=== PATIENT | male | born 2005 | race Caucasian/White ===

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

== ENCOUNTER → 2023-03-23 10:15 | Outpatient (CLI) | payer BC, SELFPAY ==
--- NOTE | ~2023-03-23 | US_ITS ---
Testicular ultrasound with doppler. Indication: Disorder of male genital organ. Technique: Real-time sonography the scrotum was performed. Color flow Doppler and Doppler spectral an alysis were performed. Findings: The testes are homogeneous in echotexture bilaterally. There is no evidence of an intrates ticular mass. The right testis measures 4.3 x 2.3 x 3.1 cm and the left 4.6 x 2.4 x 2.6 cm. There is color-flow seen to both testes. Vascular flow is seen in both testes. There is no sonographic evidenc e of torsion. The head of the epididymis is visualized bilaterally and is within normal limits. Smal l left hydrocele noted. Impression: No testicular mass or torsion. Small left hydrocele. Reviewed, dictated and finalized at [facility]. [employer] Impression: No testicular mass or torsion. Small left hydrocele.
== END ==
PROVIDERS: PCP Nurse Practitioner Family; Visit Provider Nurse Practitioner Family
DX: N50.89 Other specified disorders of the male genital organs (principal); N43.3 Hydrocele, unspecified
CPT/HCPCS: 76870; 93976

== ENCOUNTER 2024-03-20 19:22 | Emergency (ER) | payer BC, SELFPAY ==
[2024-03-20 19:20] VITALS: BP 148/90; PULSE 122; RESP 22; TEMP 36.7; O2SAT 98
[2024-03-20] MEDS: OLANZapine 10 MG INJ VIAL 5 MG IM (19:37)
[2024-03-20] MEDS: WATER, STERILE FOR INJECTION 10 ML VIAL XX (19:43)
[2024-03-20 20:06] LABS: Basophils Percent Auto 0.3 % (0.2-1.2); Eosinophils Absolute Auto 0.1 K/mm3 (0-0.3); Eosinophils Percent Auto 1.8 % (0-4.4); Hematocrit 43.9 % (42.0-52.0); Hemoglobin 15.4 g/dL (14.0-18.0); Immature Granulocyte Absolute 0.02 K/mm3 (0.00-0.031); Immature Granulocyte Percent A 0.3 % (0-0.5); Lymphocytes Absolute Auto 1.28 K/mm3 (0.9-3.2); Lymphocytes Percent Auto 17.8 % (18.3-44.2); Mean Corpuscular HGB Conc 35.1 g/dl (32-36); Mean Corpuscular Hemoglobin 31.2 pg (26-34); Mean Platelet Volume 10.4 fl (7.4-10.4); Monocytes Absolute Auto 0.7 K/mm3 (0.1-0.6); Monocytes Percent Auto 10.3 % (2.6-8.5); Neutrophils Percent Auto 69.5 % (45.5-73.1); Platelet Count Result 190 k/mm3 (150-375); Red Blood Count 4.93 M/mm3 (4.6-6.20); Red Cell Distribution Width 12.5 % (11.5-14.5); White Blood Count 7.2 K/mm3 (4.5-10.0)
[2024-03-20 20:17] LABS: Acetaminophen < 10 ug/mL (10-30); Ethanol < 10 mg/dL (<10); Salicylate < 1.0 mg/dL (2-20)
[2024-03-20 20:20] LABS: Alanine Aminotransferase 23 U/L (6-50); Alkaline Phosphatase 62 U/L (38-126); Anion Gap 11 mmol/L (4-12); Aspartate Amino Transferase 27 U/L (17-59); Bilirubin,Total 1.3 mg/dL (0.2-1.3); Blood Urea Nitrogen 12 mg/dL (9-20); Calcium 9.9 mg/dL (8.4-10.2); Carbon Dioxide 24 mmol/L (22-30); Chloride 104 mmol/L (98-107); Estimated CRCL calculation 114 ml/min; Estimated Glomerular Filt Rate > 60; Glucose 102 mg/dL (65-110); Potassium 3.7 mmol/L (3.4-5.0); Sodium 139 mmol/L (137-145)
--- NOTE | 2024-03-20 20:22 | ED_ITS ---
HPI - Psych General Chief Complaint: Psychiatric Symptoms Stated Complaint: behavioral health issue/fighting with EMS Time Seen by Provider: 03/20/24 19:22 Source: family and EMS Mode of arrival: EMS Limitations: clinical condition History of Present Illness HPI Narrative: 19-year-old with history of anxiety but he is bike trail with bizarre behavior. Patient was very anxious and upon their arrival. As per the mom that bedside states that he has been acting weird for the past day or so. 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 She also states that he starts walking bike trail and he was too agitated. Mom states that he has been taking 200 mg of sertraline recently. He has never been admitted to psychiatric hospital. No significant stress at home however he does not get along well with his dad who he saw few days ago. She also mentions that he is confused about his sexual orientation. complaint: altered mental status Onset (ago): day(s) (1) Relieving factors: none Exacerbating factors: none Associated symptoms: denies other symptoms Related Data Allergies Allergy/AdvReac Type Severity Reaction Status Date / Time No Known Allergies Allergy Verified 03/20/24 19:44 Review of Systems Review of Systems: ROS unobtainable: Yes unobtainable due to mental status PMFSH Past Medical History Medical History No pertinent past medical history Surgical History Surgical History No pertinent past surgical history Social History Social History Smoking status: Never smoker Alcohol intake: never Substance use type: marijuana Exam Narrative: GENERAL: Well-appearing, well-nourished, and in no acute distress. HEAD: Normocephalic, atraumatic. EYES: PERRLA and EOMI. ENT: Nares clear, no rhinorrhea or epistaxis. Mucous membranes moist. NECK: Supple. CHEST: Clear to auscultation. No respiratory distress. HEART: Regular rate and rhythm. No murmur heard. Normal peripheral pulses. ABDOMEN: Soft, nontender, nondistended, normal active bowel sounds. EXTREMITIES: Normal range of motion. No edema. SKIN: Warm, dry, no rash. NEURO: No focal deficits. Alert and oriented x3. PSYCH: Nanxious Course Course Emergency Course: His mother and stepmother were read bedside , I did inform him about the lab work, will consult behavioral health for possible placement patient was given IM Zyprexa and he is resting pt has been accepted to [facility] under Dr. Landaverde Reevaluation(s) Date: 03/21/24 Time: 00:25 Reevaluation #2: Patient became quite aggressive and started to fight with the security and wanted to run out of the ER. He was brought back to the room and he was restrained. He was also given Zyprexa 10 mg IM Vital Signs Vital signs: Vital Signs Temperature 36.7 C 03/20/24 19:20 Pulse Rate 122 H 03/20/24 19:20 Respiratory Rate 22 H 03/20/24 19:20 Blood Pressure 148/90 H 03/20/24 19:20 Pulse Oximetry 98 03/20/24 19:20 Temperature 36.9 C 03/21/24 00:25 Pulse Rate 90 03/21/24 03:37 Respiratory Rate 16 03/21/24 03:37 Blood Pressure 110/70 03/21/24 03:37 Pulse Oximetry 97 03/21/24 03:37 MDM - Psych Lab Data 03/20/24 19:59 03/20/24 19:59 Labs: Lab Results 03/20/24 03/20/24 Range/Units 19:59 20:50 WBC 7.2 (4.5-10.0) K/mm3 RBC 4.93 (4.6-6.20) M/mm3 Hgb 15.4 (14.0-18.0) g/dL Hct 43.9 (42.0-52.0) % MCV 89.0 (80-100) fl MCH 31.2 (26-34) pg MCHC 35.1 (32-36) g/dl RDW 12.5 (11.5-14.5) % Plt Count 190 (150-375) k/mm3 MPV 10.4 (7.4-10.4) fl Immature Gran % (Auto) 0.3 (0-0.5) % Neut % (Auto) 69.5 (45.5-73.1) % Lymph % (Auto) 17.8 L (18.3-44.2) % Rooks % (Auto) 10.3 H (2.6-8.5) % Eos % (Auto) 1.8 (0-4.4) % Baso % (Auto) 0.3 (0.2-1.2) % Lymph # (Auto) 1.28 (0.9-3.2) K/mm3 Rooks # (Auto) 0.7 H (0.1-0.6) K/mm3 Eos # (Auto) 0.1 (0-0.3) K/mm3 Baso # (Auto) 0.0 (0.0-0.1) K/mm3 Abs Immat Gran (auto) 0.02 (0.00-0.031) K/mm3 Absolute Neuts (auto) 5.0 (1.3-6.7) K/mm3 Absolute Nucleated RBC 0.000 (0.0-0.012) K/mm3 Nucleated RBC % 0.0 (0.0-0.2) % Sodium 139 (137-145) mmol/L Potassium 3.7 (3.4-5.0) mmol/L Chloride 104 (98-107) mmol/L Carbon Dioxide 24 (22-30) mmol/L Anion Gap 11 (4-12) mmol/L BUN 12 (9-20) mg/dL Creatinine 0.90 (0.7-1.3) mg/dL Estim Creat Clear Calc 114 ml/min Estimated GFR > 60 (59 - ) Glucose 102 (65-110) mg/dL Calcium 9.9 (8.4-10.2) mg/dL Total Bilirubin 1.3 (0.2-1.3) mg/dL AST 27 (17-59) U/L ALT 23 (6-50) U/L Alkaline Phosphatase 62 (38-126) U/L Total Protein 9.0 H (6.3-8.2) g/dL Albumin 5.0 (3.5-5.1) g/dL Urine Color Yellow (Yellow) Urine Appearance Clear (Clear) Urine pH 6.0 (5.0-9.0) Ur Specific [place] 1.028 (1.001-1.035) Urine Protein 1+ H (Negative) mg/dL Urine Glucose (UA) Negative (Negative) mg/dL Urine Ketones Trace H (Negative) mg/dL Ur Blood (Man) Negative (Negative) Urine Nitrate Negative (Negative) Urine Bilirubin Negative (Negative) Urine Urobilinogen 1.0 (<2.0) mg/dL Add Ur Microanalysis Reviewed Leukocyte Esterase Rfl Negative (Negative) MARIA LUZ/UL Urine RBC 0-2 (0-2) /hpf Urine WBC 0-5 (0-3) /hpf Ur Squamous Epith Cells None seen (Few) /hpf Urine Bacteria None seen /hpf Urine Casts 0-2 Salicylates < 1.0 L (2-20) mg/dL Urine Opiates Screen Negative (Negative) Urine Methadone Screen Negative (Negative) Acetaminophen < 10 L (10-30) ug/mL Ur Barbiturates Screen Negative (Negative) Ur Phencyclidine Scrn Negative (Negative) Ur Amphetamine Screen Negative (Negative) U Benzodiazepines Scrn Negative (Negative) Urine Cocaine Screen Negative (Negative) U Cannabinoids Screen Positive A (Negative) Ethyl Alcohol < 10 (<10) mg/dL Influenza A (RT-PCR) Negative (Negative) Influenza B (RT-PCR) Negative (Negative) RSV (RT-PCR) Negative (Negative) SARS-CoV-2 RNA (RT-PCR) Negative (Negative) Discharge Plan Discharge Clinical Impression: Psychotic disorder Patient Disposition: Psychiatric Hosp Condition: Stable Follow-up/Referrals: Sonia Lea MD [Primary Care Provider] - Time of Disposition: 03:47
[2024-03-20 20:41] LABS: Influenza A QL RT-PCR Negative (Negative); Influenza B QL RT-PCR Negative (Negative); RSV RNA, RT-PCR Negative (Negative); SARS-CoV-2 RNA PCR Negative (Negative)
[2024-03-20 21:18] LABS: Add Urine Microscopic? YES; Amphetamine Screen Urine Negative (Negative); Appearance Urine Clear (Clear); Bacteria Urine None Seen /hpf; Barbiturate Screen Urine Negative (Negative); Benzodiazepines Screen Urine Negative (Negative); Bilirubin Urine Negative (Negative); Blood Urine Negative (Negative); Cannabinoid Screen Urine Positive (Negative); Cocaine Screen Urine Negative (Negative); Color Urine Yellow (Yellow); Glucose Urine UA Negative (Negative); Ketones Urine Trace mg/dL (Negative); Leukocyte Esterase Ur Negative LEU/UL (Negative); Methadone Screen Urine Negative (Negative); Need Manual Microscopic Reviewed; Nitrate Urine Negative (Negative); Non Pathogenic Casts 0-2; Opiate Screen Urine Negative (Negative); Phencyclidine Screen Urine Negative (Negative); Protein Urine 1+ mg/dL (Negative); RBC Urine 0-2 /hpf (0-2); Specific Grav Ur 1.028 (1.001-1.035); Squamous Epithelial Cell Urine None Seen /hpf (Few); WBC Urine 0-5 /hpf (0-3)
--- NOTE | 2024-03-20 21:51 | PC.NURSE ---
called Crisis at 2134 and spoke to Coco who gets pt info, but recommends calling [facility] first. [facility] denies pt evaluation due to state insurance and states to call Crisis back. Called Crisis again @[phone] to update them and they state they will call ED back soon with ETA for evaluation.
[2024-03-20 22:14] VITALS: PULSE 74; RESP 13; O2SAT 95
--- NOTE | 2024-03-20 22:21 | PC.NURSE ---
pt family states pt takes sertraline at 2200 each night. pt states they do not want to take it at this time.
--- NOTE | 2024-03-20 23:13 | PC.NURSE ---
care and report given to BLANCA Negrete. all questions answered.
[2024-03-21] MEDS: OLANZapine 10 MG INJ VIAL (00:22)
[2024-03-21] MEDS: WATER, STERILE FOR INJECTION 10 ML VIAL XX (00:22)
[2024-03-21 00:25] VITALS: BP 157/87; PULSE 115; RESP 17; TEMP 36.9; O2SAT 99
[2024-03-21 00:56] VITALS: BP 107/67; PULSE 93; RESP 20; O2SAT 97
--- NOTE | 2024-03-21 03:32 | PC.NURSE ---
Report given to BLANCA River at [facility]. Pt to go to [id number] Landaverde. Requested to call their CN phone at [phone] when have an ETA.
[2024-03-21 03:37] VITALS: BP 110/70; PULSE 90; RESP 16; O2SAT 97
== END 2024-03-21 04:35 ==
PROVIDERS: Emergency Provider Family Medicine; PCP Family Medicine
DX: F28 Other psychotic disorder not due to a substance or known physiological condition (principal); Z11.52 Encounter for screening for COVID-19
CPT/HCPCS: 36415; 80053; 80143; 80179; 80307; 81001; 82077; 85025; 87637; 96374; 96376; 99285; J2359

== ENCOUNTER 2024-06-04 18:41 | Emergency (ER) | payer BC, SELFPAY ==
--- NOTE | 2024-06-04 18:52 | ED.GENADULT ---
HPI - General Adult General Chief complaint: Extremity Injury, Upper Stated complaint: INJURED L THUMB Time Seen by Provider: 06/04/24 18:52 Source: patient Mode of arrival: ambulatory Limitations: no limitations History of Present Illness HPI narrative: 19 y/o male presented for c/o left thumb pain and bleeding under the nail. Endorses injury to the nail 2 days ago when he closed it in the car door. States he was seen at another UC today, no fracture per xray, but they were unable to drain the hematoma. Endorses throbbing, and the bleeding under the nail has worsened over the past 2 days. Related Data Home Medications ?Medication ?Instructions ?Recorded ?Confirmed ?Last Taken ?Type aripiprazole 10 mg tablet mg 06/04/24 Unknown History sertraline 100 mg tablet mg 06/04/24 Unknown History Allergies Allergy/AdvReac Type Severity Reaction Status Date / Time No Known Allergies Allergy Verified 06/04/24 18:50 Review of Systems Review of Systems: per HPI All systems reviewed & are unremarkable except as noted in HPI and below PMFSH Past Medical History Medical History No pertinent past medical history Surgical History Surgical History No pertinent past surgical history Social History Social History Smoking status: Never smoker Alcohol intake: never Substance use type: marijuana Comments At time of signature, I have reviewed and agree with nursing past medical, surgical, social and family history unless otherwise noted. Please see nursing chart for further information. There is no relevant family history pertinent to the presenting complaint Exam Narrative: GENERAL: Well-appearing CHEST: Speaks in full sentences. No respiratory distress. HEART: Regular rate and rhythm. Normal and equal peripheral pulses. EXTREMITIES: Left thumb subungual hematoma covering 100%. Tender with palpation. Digit CMS intact. No obvious deformity; alignment normal, pulse palpable and equal bilaterally, skin warm, dry, pink. Capillary refill less than 3 seconds. SKIN: Warm, dry NEURO: Alert and oriented x3. PSYCH: Normal mood and affect Course Course Emergency Course: Patient is aware of diagnosis, understands and agrees to treatment plan. Anticipatory guidance given. Patient agrees to follow-up as directed and is aware of reasons to seek care at the emergency department. Portions of this record may have been created with voice recognition software Level of Care: Express Care Visit Vital Signs Vital signs: Vital Signs Temperature 99.2 F 06/04/24 18:54 Pulse Rate 101 H 06/04/24 18:54 Respiratory Rate 16 06/04/24 18:54 Blood Pressure 141/77 H 06/04/24 18:54 Pulse Oximetry 98 06/04/24 18:54 Temperature 99.2 F 06/04/24 18:54 Pulse Rate 101 H 06/04/24 18:54 Respiratory Rate 16 06/04/24 18:54 Blood Pressure 141/77 H 06/04/24 18:54 Pulse Oximetry 98 06/04/24 18:54 Reviewed Procedures Nail Trephination Nail Trephination #1: Nail Trephination Date: 06/04/24 Location (finger): left and thumb Sterile prep: other (alcohol) Method of drainage: nail cautery Procedure successful: Yes Patient tolerated procedure: well and no complications Nail Trephination Comment: Large amount of blood expelled with manual pressure. RICCARDO and bandaid applied. Medical Decision Making MDM Narrative Medical decision making narrative: Discussed physical exam findings c/w subungual hematoma left thumb; tolerated trephination. Discussed physical exam findings. Advised supportive measures and signs/symptoms to go to the ER. Pt is appropriate for outpt treatment and f/u. Differential Diagnosis Differential Diagnosis: subungual hematoma, contusion, abrasion, avulsion, fracture, dislocation, sprain Vital Signs Vital Signs: Vital Signs Temperature 99.2 F 06/04/24 18:54 Pulse Rate 101 H 06/04/24 18:54 Respiratory Rate 16 06/04/24 18:54 Blood Pressure 141/77 H 06/04/24 18:54 Pulse Oximetry 98 06/04/24 18:54 Temperature 99.2 F 06/04/24 18:54 Pulse Rate 101 H 06/04/24 18:54 Respiratory Rate 16 06/04/24 18:54 Blood Pressure 141/77 H 06/04/24 18:54 Pulse Oximetry 98 06/04/24 18:54 Discharge Plan Discharge Clinical Impression: Subungual hematoma of finger Qualifiers: Encounter type: initial encounter Qualified Code(s): S60.10XA - Contusion of unspecified finger with damage to nail, initial encounter Patient Disposition: Home, Self-Care Condition: Stable Instructions: Antibiotic Form, Subungual Hematoma (ED) Additional Instructions: Rest. Elevate the hand Avoid pushing, pulling, lifting or anything that worsens the symptoms Tylenol 1000mg every 8 hours as needed Apply ice to the site for 10 minute intervals several times a day Change the dressing daily Follow up with your primary care provider and the hand specialist Go to the ER for worsening symptoms or concerns Patient Language: Rwandan Prescriptions: New cephalexin 500 mg capsule 500 mg PO Q12H 5 Days Qty: 10 0RF No Action sertraline 100 mg tablet aripiprazole 10 mg tablet Follow-up/Referrals: UNKNOWN,DOCTOR [Primary Care Provider] - Stand Alone Forms: Work/School Release IP Time of Disposition: 19:15
[2024-06-04 18:54] VITALS: BP 141/77; PULSE 101; RESP 16; TEMP 37.3; O2SAT 98
== END 2024-06-04 19:18 | disposition home or self-care (01) ==
PROVIDERS: Emergency Provider Nurse Practitioner Family
DX: S60.112A Contusion of left thumb with damage to nail, initial encounter (principal); V49.3XXA Car occupant (driver) (passenger) injured in unspecified nontraffic accident, initial encounter; F12.90 Cannabis use, unspecified, uncomplicated
CPT/HCPCS: 11740; 99213; G0463

== ENCOUNTER 2024-12-28 16:51 | Emergency (ER) | payer BC, SELFPAY ==
[2024-12-28] VITALS (22 sets, daily range): BP systolic 117–152; BP diastolic 55–106; PULSE 86–126; RESP 15–28; TEMP 36.4–36.8; O2SAT 91–100
--- OUTSIDE RECORDS SUMMARY | 2024-12-28 16:53 | XMS_ITS ---
Author Organization [facility] Aviate Address [address] [place] [address] Care Team Providers Care Senior Data Quality Analyst Name Role Phone Aliyah Mora Unavailable [phone] Simon Wong Unavailable [phone] Allergies Allergen (clinical drug ingredient) Drug/Non Drug Allergy documented on EMR Reaction Allergy Type Onset Date Status Cat dander cats (uncoded) Unknown Allergy Acti ve Dog dander dogs (uncoded) Unknown Allergy Acti ve grass (uncoded) Unknown Allergy Acti ve peanuts (uncoded) Unknown Allergy Ac tive Tree Nuts Unknown Allergy Active REASON FOR VISIT I got sent home from work because i was using my brain., poor sleep for the past 4-5 nights., experiencing overstimulation from sounds, smells, and visual stimuli every day, which triggers stress and impacts his daily functioning. Medications Medication SIG (Take, Route, Frequency, Duration) Notes Start Date End Date Status PROzac 20 MG 1 capsule Orally Onc e a day; Duration: 30 days Active ZyrTEC Allergy 10 MG 1 tablet as needed Orally Once a day As needed Active Fish Oil Active FLUoxetine HCl 20 MG 1 tablet Orally Onc e a day; Duration: 30 days decreased on 12/27/2024 Active ARIPiprazole 10 MG 1 tablet Orally Once a day; Duration: 30 days goal to give long acting injection 12/27/2024 Active Abilify Maintena 400 MG as directed Intramuscular monthly; Duration: 1 days Active Social History Tobacco Use: Social History Observation Description Date Details (start date - stop date) Never Smoker NA - NA Sex Assigned At : Social History Observation Description Sex Assigned At Male Household Question Answer Notes Number of adults in household: Nancy blakely w/ cali Tobacco Control (Standard) Question Answer Notes Tobacco use: Nonsmoker Vital Signs Blood pressure systolic 152 mm Hg 12/28/19 25 Blood pressure diastolic 110 mm Hg 025 Heart Rate 102 /min 12/27/2024 Weight 200 lbs 12/27/2024 Weight-kg 90.72 kg 12/27/2024 Encounters Encounter Location Date Provider Diagnosis [facility], [facility] [address] [facility] [address] [place] [address] 12/27/2024 Simon Clubb SHIRA (generalized anxiety disorder) F41.1 ; Bipolar 1 disorder F31.9 and Non-compliance Z91.199 Assessments Encounter Date Diagnosis (ICD Code) Assessment Notes Treatment Notes Treatment Clinical Notes Section Notes 12/27/2024 SHIRA (generalized anxiety disorder) (ICD-10 - F41.1) 12/27/2024 Bipolar 1 disorder (ICD-10 - F31.9) 12/27/2024 Non-compliance (ICD-10 - Z91.199) 12/27/2024 Other 1. Bipolar I Disorder, current episode mixed - Patient presents with symptoms suggestive of a mixed episode. - History of previous manic episodes resulting in hospitalization. - Stopped olanzapine 1-2 months ago due to side effects. - Currently only on fluoxetine 40mg. - Plan: a. Start Abilify 10 mg PO at bedtime. b. hold fluoxetine to reduce risk of triggering melonie. c. Schedule for long-acting Abilify injection next week. d. Patient to take oral Abilify for 2 weeks after first injection. e. Abilify long-acting injection prescription sent to [facility] for delivery to clinic. f. Follow up after starting Abilify to assess efficacy and tolerability. g. Provided crisis prevention hotline number (265) and emergency instructions. h. follow up with primary psychiatric care provider Aliyah on 01/01/2025. 2. Generalized Anxiety Disorder - Patient reports significant anxiety symptoms. - Current anxiety self-rated as 10/10. - Plan: a. continue plan as listed above 3. Insomnia - Patient reports poor sleep, 2-4 hours per night for the past several nights. - Plan: a. Monitor sleep patterns with new medication regimen. b. Reassess sleep at follow-up appointment. 4. Substance Use - Patient admits to not a lot of substance use, just a couple times. - Plan: a. Monitor for substance use and its potential impact on mood symptoms. b. Reassess at follow-up appointment. Plan Of Treatment Medication Medication Name Sig Start Date Stop Date Notes PROzac 20 MG 1 capsule Orally Onc e a day; Duration: 30 days OLANZapine 5 MG 1 tablet Orally Once a day; Duration: 30 days ARIPiprazole 10 MG 1 tablet Orally Once a day; Duration: 30 days 12/27/2024 goal to give long acting injection Abilify Maintena 400 MG as directed Intramuscular monthly; Duration: 1 days Treatment Notes Assessment Notes Other 1. Bipolar I Disorder, current episode mixed - Patient presents with symptoms suggestive of a mixed episode. - History of previous manic episodes resulting in hospitalization. - Stopped olanzapine 1-2 months ago due to side effects. - Currently only on fluoxetine 40mg. - Plan: a. Start Abilify 10 mg PO at bedtime. b. hold fluoxetine to reduce risk of triggering melonie. c. Schedule for long-acting Abilify injection next week. d. Patient to take oral Abilify for 2 weeks after first injection. e. Abilify long-acting injection prescription sent to [facility] for delivery to clinic. f. Follow up after starting Abilify to assess efficacy and tolerability. g. Provided crisis prevention hotline number (107) and emergency instructions. h. follow up with primary psychiatric care provider Aliyah on 01/01/2025. 2. Generalized Anxiety Disorder - Patient reports significant anxiety symptoms. - Current anxiety self-rated as 10/10. - Plan: a. continue plan as listed above 3. Insomnia - Patient reports poor sleep, 2-4 hours per night for the past several nights. - Plan: a. Monitor sleep patterns with new medication regimen. b. Reassess sleep at follow-up appointment. 4. Substance Use - Patient admits to not a lot of substance use, just a couple times. - Plan: a. Monitor for substance use and its potential impact on mood symptoms. b. Reassess at follow-up appointment. Next Appt Details Follow Up: 01/01/2025, Reason : medication follow up Provider Name:Aliyah Mora , 01/01/2025 08:30:00 AM, [address], [address], [place], [address], Provider Name:Candelario Shea , 01/01/2025 09:00:00 AM, [address], [address], [place], [address], Progress Notes * Mikey LOWRYOB:2005 ( 19 yo M)Acc No.[id number]:12/27/2024 Patient: Nikita WEBB Provider: LI Patel :2005 A ge:19 Y S ex:Male Date:12/27/2024 Phone: Address:[address] [place], [place] [id number] Subjective: * Chief Complaints: * I got sent home from work because i was using my brain.Poor sleep for the past 4-5 nights.Experiencing overstimulation from sounds, smells, and visual stimuli every day, which triggers stress and impacts his daily functioning. * HPI: T ransition of Care: Regarding his medication history, Nikita previously tried Risperdal, which he reports helped bring him down from a manic episode that had resulted in hospitalization. In early April, he was transitioned from Risperdal to Abilify, with the Abilify does increased to 15 mg on June 06. [place] was later added to his regimen, with an increase to 300 mg on June 24. Bipolar 1 disorder, non-compliance, SHIRA, SI, Hx melonie 08/06/2024 sent to [facility] from walk-in. 08/30/2024 - continue Zyprexa 5 mg - refill fluoxetine 20 10/11/2024 - increased Prozac 40 mg daily - continue olanzapine 5 mg daily 12/27/2024 stopped taking olanzapine- i couldn't feel anything - got sent home from work because I was using my brain - hold fluoxetine 40 mg daily - start aripiprazole 10 mg daily - order abilify Maintena 400 mg - patient agrees to MARX r/t long history of non-compliance on multiple different trials of mood stabilizers and antipsychotics. H istory of Presenting Problem: Elevated or Hypertensive blood pressure reading. The note is transcribed using speech recognition software. It is a reflection of a visit with the patient. It might have some inaccuracy, including medication names and transcribing errors, though efforts have been made to correct them. Chief Complaint: The patient presents with symptoms of depression, anxiety, and possible early signs of melonie. HPI: Nikita, a patient with a history of bipolar I disorder and anxiety disorder, reports being sent home from work due to using his brain and worrying about people. He rates his current anxiety level as 10 out of 10 and his depression as 3 out of 10. He describes feeling sad, unhappy, and discouraged about the future, feeling like a failure, not enjoying things as he used to, and experiencing guilt and self- blame. He has lost interest in sex completely and has difficulty making decisions. Nikita's sleep has been disrupted, waking up several hours earlier than usual and unable to fall back asleep. He reports only sleeping a couple of hours last night and having poor sleep for the past 4-5 nights. His appetite has significantly decreased. Anxiety symptoms include feeling nervous, anxious, or on edge nearly every day, with difficulty controlling worry more than half the days over the past two weeks. He experiences trouble relaxing, restlessness, irritability, and fear that something awful might happen. Nikita reports experiencing overstimulation from sounds, smells, and visual stimuli every day, which triggers stress and impacts his daily functioning. He denies current auditory or visual hallucinations. He denies current suicidal thoughts. Medications: Nikita is currently taking fluoxetine 40mg, Zyrtec, and fish oil. He discontinued olanzapine about a month or two ago due to emotional blunting and weight gain. He has a history of medication non-compliance. His last psychiatric visit was on October 11, 2024, when his fluoxetine was increased to 40mg and olanzapine 5mg was continued. Past Medical History: Nikita was hospitalized at [facility] in July 2024, where he was stabilized on Zyprexa 5mg and fluoxetine 20mg. He has a history of manic episodes resulting in hospitalization, with previous trials of Risperdal and Abilify. Social History: Nikita lives with his grandmother. He reports not a lot of substance use, but admits to using substances just a couple times recently. (marijuana gummies). Review of Systems: General: Positive for decreased appetite, sleep disturbance (2-4 hours of sleep per night). Psychiatric: Positive for sadness, discouragement about the future, feelings of failure, anhedonia, guilt, self-disappointment, self-blame, irritability, indecisiveness, anxiety, nervousness, excessive worry, trouble relaxing, restlessness, easy annoyance, fear. Negative for suicidal thoughts, hallucinations, delusions. Other: Positive for overstimulation to sensory input (sounds, smells, sights). D epression screening: PHQ-9 L ittle interest or pleasure in doing things?Not at all F eeling down, depressed, or hopeless N ot at all T rouble falling or staying asleep, or sleeping too much M ore than half the days F eeling tired or having little energy S P oor appetite or overeating M ore than half the days F eeling bad about yourself or that you are a failure, or have let yourself or your family down M ore than half the days T rouble concentrating on things, such as reading the newspaper or watching television S M oving or speaking so slowly that other people could have noticed; or the opposite, being so fidgety or restless that you have been moving around a lot more than usual S T houghts that you would be better off or of hurting yourself in some way N ot at all T otal Score 9 I nterpretation M ild Depression Intervention D epression Screening Findings P ositve F ollow-Up for Depression M ental health care management, Psychiatric follow-up S uicide Risk Assessment Performed 0 12/27/2024 N miriam of the standardized tool used for adult depression screening: B hellen Depression Inventory (BDI or BDI-II),Patient Health Questionnaire (PHQ-9) G AD-7 Anxiety: Over the last two weeks, how often have you been bothered by the following problems? 1 . Feeling nervous, anxious, or on edge 3 Nearly every day 2 . Not being able to stop or control worrying?2 More than half the days 3 . Worrying too much about different things?2 More than half the days 4 . Trouble relaxing 2 More than half the days 5 . Being so restless that it is hard to sit still 3 Nearly every day 6 . Becoming easily annoyed or irritable 1 Several days 7 . Feeling afraid, as if something awful might happen 1 Several days Total Score t otal Score 1 4 B hellen Depression Inventory: which describes you best in terms of this past week 1 In the past one week which term best describe you 2 I am blue or sad all the time and I can't snap out of it. 2 In the past one week which term best describe you 0 I am not particularly pessimistic or discouraged about the future. 3 In the past one week which term best describe you 2 I feel I have accomplished very little that is worthwhile or that means anything. 4 In the past one week which term best describe you 0 I get as much satisfaction out of things as I used to . 5 In the past one week which term best describe you 2 I feel quite guilty most of the time. 6 In the past one week which term best describe you 1 I feel I may be punished. 7 In the past one week which term best describe you 0 I don't feel disappointed in myself. 8 In the past one week which term best describe you 3 I blame myself for everything bad that happens. 9 In the past one week which term best describe you 0 I don't have any thoughts of killing myself. 1 0 In the past one week which term best describe you 0 I don't cry any more than usual. 1 1 In the past one week which term best describe you 3 I feel irritated all the time. 1 2 In the past one week which term best describe you 0 I have not lost interest in other people. 1 3 In the past one week which term best describe you 1 I put off making decisions more than I used to. 1 4 In the past one week which term best describe you 3 I believe that I look ugly. 1 5 In the past one week which term best describe you 1 It takes an extra effort to get started at doing something. 1 6 In the past one week which term best describe you 3 I wake up several hours earlier than I used to and cannot get back to sleep 1 7 In the past one week which term best describe you 1 I get tired more easily than I used to. 1 8 In the past one week which term best describe you 1 My appetite is not as good as It used to be. 1 9 In the past one week which term best describe you 2 I have lost more than ten pounds. patient states trying to lose weight 2 0 In the past one week which term best describe you 2 I am very worried about physical problems and it's hard to think of much else. 2 1 In the past one week which term best describe you 2 I have almost no interest in sex. Total Score T otal Score 2 2 M anic episode: Abnormal mood symptoms were first noted d ays ago, first noted by co-workers. Associated symptoms are d ecreased need for sleep, increased goal directed activities, increased sense of energy, psychomotor agitation. got sent home from work.. Additional symptoms are p aranoid thinking do i have a twin brother? where is [place] ? are you messaging someone (said during assessment). Negative consequences are s ent home from job on 12/27/2024.? Aggravating factors include n oncompliance with medical therapy using marijuana gummies. * ROS: P sychiatric: Patient denies s uicidal thoughts, delusions, auditory / visual hallucinations, eating disorder, mental or physical abuse, mood disorder, nervous breakdown, substance abuse, , melonie, Feeling Intoxicated, Dissociations, Excited, psychosis, panic attacks, difficulty concentrating, involuntary movements. P atient complains of i rritability, difficulty sleeping, loss of appetite, self rated anxiety 10/10, self rated depression 3/10, , stressors, irritability. * Medical History: * Surgical History: * Hospitalization/Major Diagno stic Procedure: * Social History: T obacco Use: T obacco Control (Standard) T obacco use: N onsmoker H ousehold: H ousehold N umber of adults in household: L zora w/ grandma * Medications: T akingARIPiprazole 10 MG Tablet 1 tablet Orally Once a day , Notes to Pharmacist: goal to give long acting injectionZyrTEC Allergy 10 MG Tablet 1 tablet as needed Orally Once a day As neededFish Oil FLUoxetine HCl 20 MG Capsule 1 tablet Orally Once a day , Notes to Pharmacist: decreased on 12/27/2024Taking ARIPiprazole 10 MG Tablet 1 tablet Orally Once a day , Notes to Pharmacist: goal to give long acting injectionTaking ZyrTEC Allergy 10 MG Tablet 1 tablet as needed Orally Once a day As neededTaking Fish Oil Taking FLUoxetine HCl 20 MG Capsule 1 tablet Orally Once a day , Notes to Pharmacist: decreased on 12/27/2024Not-TakingAbilify Maintena 400 MG Suspension Reconstituted ER as directed Intramuscular Not-Taking Abilify Maintena 400 MG Suspension Reconstituted ER as directed Intramuscular DiscontinuedOLANZapine 5 MG Tablet 1 tablet Orally Once a day , Notes to Pharmacist: non- compliantMontelukast Sodium 10 MG Tablet 1 tablet Orally Once a day Fluticasone Propionate HFA 44 MCG/ACT Aerosol 1 puff Inhalation Twice a day ARIPiprazole 5 MG Tablet Oral [place] Carbonate 300 MG Capsule Oral ARIPiprazole 10 MG Tablet Oral [place] Carbonate 150 MG Capsule Oral ARIPiprazole 15 MG Tablet Oral Medication List reviewed and reconciled with the patientDiscontinued OLANZapine 5 MG Tablet 1 tablet Orally Once a day , Notes to Pharmacist: non-compliantDiscontinued Montelukast Sodium 10 MG Tablet 1 tablet Orally Once a day Discontinued Fluticasone Propionate HFA 44 MCG/ACT Aerosol 1 puff Inhalation Twice a day Discontinued ARIPiprazole 5 MG Tablet Oral Discontinued [place] Carbonate 300 MG Capsule Oral Discontinued ARIPiprazole 10 MG Tablet Oral Discontinued [place] Carbonate 150 MG Capsule Oral Discontinued ARIPiprazole 15 MG Tablet Oral Medication List reviewed and reconciled with the patient * Allergies: p eanutsTree Nutsgrassdjerson[Allergies Verified] Objective: * Vitals: B P:152/110mm Hg, HR:102/min, Wt:200lbs, Wt-k.72 kg. * Examination: P sychiatry: Appearance: w ell-groomed, well-nourished, appears stated age. Abnormal body movements: n o abnormal muscle movements noted. Affect / mood: a ppropriate. Attention: f air. Attitude: g uarded. Gait n o impairment. Homicidal ideation: n one. Suicidal ideation: n one. Memory status: d id not assess. Degree of awareness of surroundings: w ithin normal limits.? Delusions: n o. Hallucinations: n o. 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 impaired impulse control.. Insight: p oor. Intellectual functioning: n ot assessed. Calculation - Intellectual function: n ot tested. Literacy - Intellectual function: n ot tested. Comprehension - Intellectual function: n ot tested. Abstract / proverb - Intellectual function: n ot tested.? Similarities / opposites - Intellectual function: n ot tested. Judgement: i mpaired as evidence by patient being non compliant with medications.. Orientation: a wake, alert and oriented x 3. Perceptual disorders: n o perceptual disorder noted. Psychomotor activity: r estless, agitated. Speech / language: a ppropriate pitch/modulation, clear and coherent, normal rate, volume, and articulation (RVR), proper grammar used. Thought content: a ppropriate. Thought process: i ntact. G eneral Examination: General appearance: r estless. Eyes: p oor eye contact. M ental Status Examination: Patient appears anxious, with anxiety rated as 10/10. Some evidence of tangential speech, with patient asking unrelated questions about [place] and [place]. Patient reports feeling sad and unhappy, with depression rated as 3/10. Some evidence of disorganized thinking, with patient making seemingly unrelated statements and questions. Denies current suicidal ideation. Reports worrying about people at work. Denies current auditory or visual hallucinations. Alert. Reports difficulty concentrating. Insight appears limited. Patient seems to have difficulty explaining why he was sent home from work. Judgment appears impaired, based on reported work difficulties and limited understanding of current situation. Diagnostic Test Results and Labs: PHQ-9 score: 9 (as of MonDec 27 2024) SHIRA-7 score: 14 (as of MonDec 27 2024) Vivar Depression Inventory score: 22 (as of MonDec 27 2024) Anxiety score: 10/10 (as of MonDec 27 2024) Depression score: 3/10 (as of MonDec 27 2024). Assessment: * Assessment: 1. B ipolar 1 disorder - F31.9 (Primary) 2 . G AD (generalized anxiety disorder) - F41.1 3 . N on-compliance - Z91.199 Plan: * Treatment: 2. G AD (generalized anxiety disorder) Decrease PROzac Capsule, 20 MG, 1 capsule Orally Once a day, 30 days, 30, Refills 1. 3. O thers Notes: 1. Bipolar I Disorder, current episode mixed - Patient presents with symptoms suggestive of a mixed episode. - History of previous manic episodes resulting in hospitalization. - Stopped olanzapine 1-2 months ago due to side effects. - Currently only on fluoxetine 40mg. - Plan: a. Start Abilify 10 mg PO at bedtime. b. hold fluoxetine to reduce risk of triggering melonie. c. Schedule for long-acting Abilify injection next week. d. Patient to take oral Abilify for 2 weeks after first injection. e. Abilify long-acting injection prescription sent to [facility] for delivery to clinic. f. Follow up after starting Abilify to assess efficacy and tolerability. g. Provided crisis prevention hotline number (896) and emergency instructions. h. follow up with primary psychiatric care provider Aliyah on 01/01/2025. 2. Generalized Anxiety Disorder - Patient reports significant anxiety symptoms. - Current anxiety self-rated as 10/10. - Plan: a. continue plan as listed above 3. Insomnia - Patient reports poor sleep, 2-4 hours per night for the past several nights. - Plan: a. Monitor sleep patterns with new medication regimen. b. Reassess sleep at follow-up appointment. 4. Substance Use - Patient admits to not a lot of substance use, just a couple times. - Plan: a. Monitor for substance use and its potential impact on mood symptoms. b. Reassess at follow-up appointment. * Procedure Codes: [id number] BEHAV ASSMT W/SCORE & DOCD/STAND [id number] VISIT COMPLEXITY INHERENT TO ONGOING CARE RELATED TO A PATIENT'S SINGLE, SERIOUS CONDITION OR A COMPLEX CONDITION * Preventive Medicine: Counseling: B P Management: FIRST HYPERTENSIVE BP READING FOLLOW-UP PLAN: F cecilialow-up 1 month Follow up with your PCP LIFESTYLE RECOMMENDATION: L ifestyle education REFERRAL TO ALTERNATIVE / PRIMARY CARE PROVIDER: Cathy stevenson to general medical service WEIGHT REDUCTION RECOMMENDATION: W eight-reducing diet education DIETARY RECOMMENDATIONS: D iet education Dietary Healthy-Heart Diet S afety: Discussed the risk and benefits of medication(s)? Y es Compliance issues reviewed Antipsychotic medications, while effective for treating mental health conditions, can cause a range of side effects, from common to serious, requiring careful monitoring and discussion with a healthcare provider.Common Side Effects:Metabolic: Weight gain, increased cholesterol and blood sugar levels, and changes in appetite.Movement Disorders: Drowsiness, sedation, and in some cases, movement disorders like tremors, stiffness, or restlessness.Other: Dry mouth, constipation, blurred vision, and sexual dysfunction.Serious Side Effects:Extrapyramidal Symptoms (EPS):These include acute dystonia (muscle spasms), Parkinsonism (tremors, rigidity), and tardive dyskinesia (involuntary movements).Neuroleptic Malignant Syndrome (NMS):A rare but potentially fatal condition characterized by high fever, muscle rigidity, and altered mental state.Cardiovascular Issues:Prolongation of the QT interval (a heart rhythm problem), and in rare cases, sudden cardiac .Other Serious Side Effects:Increased risk of stroke, blood clots, and diabetes.Important Considerations:Medication-Specific Side Effects:Different antipsychotics have different side effect profiles, so it's crucial to discuss the specific medication with your doctor.Monitoring:Regular monitoring for side effects is essential, especially during the initial stages of treatment.Communication:Open communication with your doctor or psychiatrist is vital to address any concerns or side effects promptly.Older Adults:Antipsychotic medications should be used with caution in older adults due to an increased risk of certain side effects, including stroke and .Dementia:Antipsychotics should be used with extreme caution in people with dementia, as they can increase the risk of due to pneumoniaeducated on MARX Screenings: D epression screening Have you had a recent depression screening? Y es Date of depression screenin 12/27/2024 * Follow Up: (Reason: medication follow up) * Billing Information: * Visit Code: [id number] OFFICE OUTPATIENT VISIT 25 MINUTES DETAILED HISTORY AND EXAM/MODERATE MEDICAL DECISION MAKING. * Procedure Codes: 23608 BEHAV ASSMT W/SCORE & DOCD/STAND INSTRUMENT. G2211 VISIT COMPLEXITY INHERENT TO ONGOING CARE RELATED TO A PATIENT'S SINGLE, SERIOUS CONDITION OR A COMPLEX CONDITION. * Sign off status: Completed true * Provider: LI Patel Date: 0 12/27/2024 Generated for Candelaria camacho/Shantel/Sachaitting on: 0 12/28/2024 04:53 PM CDT History and Physical Notes * HPI (History of Present Illness) Category Sub-Category Detail Notes Category Not es Manic episode Associated symptoms are decrease d need for sleep, increased goal directed activities, increased sense of energy, psychomotor agitation. got sent home from work. Additional symptoms are paranoid thinkin g do i have a twin brother? where is [place] ? are you messaging someone (said during assessment) Negative consequences are sent home from job on 12/27/2024 Aggravating factors include noncomplianc e with medical therapy using marijuana gummies Abnormal mood symptoms were first noted days ago, first noted by co-workers History of Presenting Problem Depression screening PHQ-9 Little inte rest or pleasure in doing things: Not at all Feeling down, depressed, or hopeless: No t at all Trouble falling or staying a sleep, or sleeping too much: More than half the days Feeling tired or having little energy: S everal days Poor appetite or overeating: More than h luis angel the days Feeling bad about yourself o r that you are a failure, or have let yourself or your family down: More than half the days Trouble concentrating on thi ngs, such as reading the newspaper or watching television: Several days Moving or speaking so slowly that other people could have noticed; or the opposite, being so fidgety or restless that you have been moving around a lot more than usual: Several days Thoughts that you would be b otis off or of hurting yourself in some way: Not at all Total Score: 9 Interpretation: Mild Depression Intervention Depression Screening Findings: P oskaren Follow-Up for Depression: Mental health care management, Psychiatric follow-up Suicide Risk Assessment Performed: 12/27 Name of the standardized too l used for adult depression screening:: Vivar Depression Inventory (BDI or BDI-II),Patient Health Questionnaire (PHQ-9) Vivar Depression Inventory which describe s you best in terms of this past week 1 In the past one week which term best describe you: 2 I am blue or sad all the time and I can't snap out of it. 2 In the past one week which term best describe you: 0 I am not particularly pessimistic or discouraged about the future. 3 In the past one week which term best describe you: 2 I feel I have accomplished very little that is worthwhile or that means anything. 4 In the past one week which term best describe you: 0 I get as much satisfaction out of things as I used to . 5 In the past one week which term best describe you: 2 I feel quite guilty most of the time. 6 In the past one week which term best describe you: 1 I feel I may be punished. 7 In the past one week which term best describe you: 0 I don't feel disappointed in myself. 8 In the past one week which term best describe you: 3 I blame myself for everything bad that happens. 9 In the past one week which term best describe you: 0 I don't have any thoughts of killing myself. 10 In the past one week whic h term best describe you: 0 I don't cry any more than usual. 11 In the past one week whic h term best describe you: 3 I feel irritated all the time. 12 In the past one week whic h term best describe you: 0 I have not lost interest in other people. 13 In the past one week whic h term best describe you: 1 I put off making decisions more than I used to. 14 In the past one week whic h term best describe you: 3 I believe that I look ugly. 15 In the past one week whic h term best describe you: 1 It takes an extra effort to get started at doing something. 16 In the past one week whic h term best describe you: 3 I wake up several hours earlier than I used to and cannot get back to sleep 17 In the past one week whic h term best describe you: 1 I get tired more easily than I used to. 18 In the past one week whic h term best describe you: 1 My appetite is not as good as It used to be. 19 In the past one week whic h term best describe you: 2 I have lost more than ten pounds. patient states trying to lose weight 20 In the past one week whic h term best describe you: 2 I am very worried about physical problems and it's hard to think of much else. 21 In the past one week whic h term best describe you: 2 I have almost no interest in sex. Total Score Total Score: 22 SHIRA-7 Anxiety Over the last two we eks, how often have you been bothered by the following problems? 1. Feeling nervous, anxious, or on edge: 3 Nearly every day 2. Not being able to stop or control wor ryin More than half the days 3. Worrying too much about different thi ngs: 2 More than half the days 4. Trouble relaxin More than half th e days 5. Being so restless that it is hard to sit still: 3 Nearly every day 6. Becoming easily annoyed or irritable: 1 Several days 7. Feeling afraid, as if something awful might happen: 1 Several days Total Score total Score: 14 Examination Category Sub-Category Detail Notes Category Not es Psychiatry Appearance: well-groomed, we ll-nourished, appears stated age Attitude: guarded Psychomotor activity: restless, agitated Abnormal body movements: no abnormal mus keke movements noted Attention: fair Degree of awareness of surroundings: wit hin normal limits Orientation: awake, alert and tariq ented x 3 Affect / mood: appropriate Speech / language: appropriate pitch/mo dulation, clear and coherent, normal rate, volume, and articulation (RVR), proper grammar used Insight: poor Judgement: impaired as evidence by patient being non compliant with medications. Thought process: intact Thought content: appropriate Perceptual disorders: no perceptual diso rder noted Suicidal ideation: none Homicidal ideation: none Intellectual functioning: not assessed Impulse control: patient used hand sa nitizer 4 times during assessment. impaired impulse control. Memory status: did not assess Delusions: no Hallucinations: no Calculation - Intellectual function: not tested Literacy - Intellectual function: not te sted Comprehension - Intellectual function: n ot tested Abstract / proverb - Intellectual functi on: not tested Similarities / opposites - I ntellectual function: not tested Gait no impairment General Examination General appearance: restless Mental Status Examination: Patient appears anxious, with anxiety rated as 10/10. Some evidence of tangential speech, with patient asking unrelated questions about [place]. Patient reports feeling sad and unhappy, with depression rated as 3/10. Some evidence of disorganized thinking, with patient making seemingly unrelated statements and questions. Denies current suicidal ideation. Reports worrying about people at work. Denies current auditory or visual hallucinations. Alert. Reports difficulty concentrating. Insight appears limited. Patient seems to have difficulty explaining why he was sent home from work. Judgment appears impaired, based on reported work difficulties and limited understanding of current situation. Diagnostic Test Results and Labs: PHQ-9 score: 9 (as of MonDec 27 2024) SHIRA-7 score: 14 (as of MonDec 27 2024) Vivar Depression Inventory score: 22 (as of MonDec 27 2024) Anxiety score: 10/10 (as of MonDec 27 2024) Depression score: 3/10 (as of MonDec 27 2024) Eyes: poor eye contact
--- OUTSIDE RECORDS SUMMARY | 2024-12-28 16:53 | XMS_ITS | Clinical Summary ---
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 Name Role Phone Rosette Stewart MD Primary Care Provider [phone] Oliva Roberts DIRECTOR OF EMPLOYEE DEVELOPMENT Unavailable [phone] Allergies Active Allergy Reactions Criticality Noted Date Comments Peanut Edema Medium 01/20/2010 Foods that contain peanuts cause edema, vomiting, and hives Tree Nuts Edema Medium 09/07/2010 Medications ARIPiprazole (ABILIFY) 10 mg tablet TAKE 1 TABLET BY MOUTH EVERY DAY FOR 30 DAYS 05/24/19 25 Active EPINEPHrine 0.3 mg/0.3 mL auto-injection syringe INJECT INTRAMUSCULARLY IMMEDIATELY NEEDED THEN CALL 911 Active fluticasone propion-salmet Frances (ADVAIR DISKUS) 100-50 mcg/dose diskus inhaler INHALE 1 PUFFS BY MOUTH TWICE A DAY FOR 90 DAYS Active montelukast (SINGULAIR) 10 mg tablet Take 1 tablet (10 mg total) by mouth daily Active risperiDONE (RisperDAL) 2 mg tablet TAKE 1 TABLET BY MOUTH ONCE A DAY WITH 2 MG IN THE MORNING ALONG WITH 3 MG AT NIGHT 04/23/20 24 Active risperiDONE (RisperDAL) 3 mg tablet TAKE 1 TABLET BY MOUTH TWICE A DAY FOR 30 DAYS 04/16/20 24 Active sertraline (ZOLOFT) 100 mg tablet 05/28/19 25 Active Active Problems Problem Noted Date Diagnosed Date Monocular esotropia with A pattern, right eye Diplopia 08/15/2018 Infection of skin 01/26/2017 Anisometropia 02/18/2015 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 Atopic dermatitis 01/19/2010 Asthma 11/30/2009 Social History Tobacco Use Types Packs/Day Years Used Date Smoking Tobacco: Never Sex and Gender Information Value Date Recorded Sex Assigned at Not on file Legal Sex Male 1:26 PM POST SPLITTER Gender Identity Not on file Sexual Orientation Not on file Obstetrics History Last Filed Vital Signs Vital Sign Reading Time Taken Comments Blood Pressure 148/74 06/04/2024 2:16 PM POST SPLITTER Pulse 90 06/04/2024 2:16 PM POST SPLITTER Temperature 37.1 C (98.7 F) 06/04/2024 2:16 PM POST SPLITTER Respiratory Rate 18 06/04/2024 2:16 PM POST SPLITTER Oxygen Saturation 98% 06/04/2024 2:16 PM POST SPLITTER Inhaled Oxygen Concentration - - Weight 81.6 kg (180 lb) 06/04/2024 2:16 PM POST SPLITTER Height 175.3 cm (5' 9) 06/04/2024 2:16 PM POST SPLITTER Body Mass Index 26.58 06/04/2024 2:16 PM POST SPLITTER Plan of Treatment Health Maintenance Due Date Last Done Comments Depression Screening 2003 Hepatitis C Screening 2003 Pneumococcal vaccine <65 (1 of 1 - PPSV23, PCV20, or PCV21) 2009 06/02/2004, 2003, 2003, Additional history exists Regular Well Visit/Exam 18-64 2021 Meningococcal B Vaccine (2 o f 2 - Bexsero SCDM 2-dose series) 10/02/2024 04/04/2024 Influenza Vaccine (#1) 2025 , 02/02/2023, 06/27/2022, Additional history exists DTaP/Tdap/Td Vaccine (8 - Td or Tdap) 04/04/2034 04/04/2024, 05/13/2013, 01/02/2009, Additional history exists Hepatitis B Screening Completed 2003 , 2003, 2003, Additional history exists Varicella Vaccines Completed 03/07/2007, 03/10/2004 HPV Vaccines Completed 07/17/2017, 05/11/2016 Meningococcal Vaccine Completed 03/21/2019, 015 Covid-19 Vaccine Completed 02/22/2024, , 09/18/2020, Additional history exists Insurance [employer] [place] Care Teams Evaporative Cooler Installer Relationship Specialty Start Date End Date Rosette Stewart MD [address] [place] [address] PCP - General 07/23/16 Oliva Roberts NP [address] [place] [address] Nurse Practitioner Pediatrics 04/05/23
--- OUTSIDE RECORDS SUMMARY | 2024-12-28 16:54 | XMS_ITS | Patient Health Record ---
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 Suicidal Thoughts in a Family Member: Care Instructions material was published, Learning About Making a Suicide Safety Plan material was published, Learning About How to Get Help During a Mental Health Crisis material was published 1. Bipolar depresison hx melonie hx [facility], [place] 08/06 AIMS= 0 08/30/24 2. Anxiety- having depression and anxiety Increase Prozac 40 mg daily monitor for melonie and hypomania 3. Suicidal ideation stable on rx- reported improved discuss and educated on 988/911 safety plan- lives with grandma support educated on go to nearest ER with passive/active SI thoughts, plans intent Discussed and educated pt regarding benzodiazepines are generally not intended for prolonged use and that use can cause tolerance, dependence, depression, and associated memory issues including dementias (this list is not exhaustive). Benzodiazepine use is generally not recommended concurrently with pain medications and/or other controlled substances educated on all medications, benefits, side effects and risk, and educated on depression, anxiety, and ADHD, mood d/o and educated on compliance of medications, metabolic and movement d/o education appointment is, continue therapy discussion with patient about course of treatment and patient instructions. education on serotonin syndrome SSRI/SNRI side effects discussed including but not limited to, gastric upset, nausea, vomiting, diarrhea and/or constipation, weight changes, sexual side effects including loss of libido, increased suicidal thoughts/behavio rs in children and young adults, and serotonin syndrome. Second generation antipsychotics (SGAs) have metabolic syndrome issues with weight gain, increase in prolactin, increased waist circumference, increased lipids, and increased glucose. Thus routine monitoring of weight, metabolic labs, etc. is indicated. A general rank ordering of antipsychotics that have the greatest to the least risk of metabolic effects is olanzapine, quetiapine, risperidone, ziprasidone, and aripiprazole. However, weight gain can occur with all of these drugs and considerable variability exists among patients receiving the same drug regarding the risk of metabolic effects. Anti-psychotic agents not only increase the risk of metabolic disorder, they also increase the risk of CVA, akathisia, and movement disorders including EPS or tardive dyskinesia (more common with first generation antipsychotics) and more. Medication Management and Follow-Up - Plan: - Schedule follow-up appointments every 1-3 months to monitor the patient's response to the medication regimen. - Reinforce the importance of avoiding recreational drug use due to potential neurotoxicity and interactions with prescribed medications. Cannabis Use Education Recommend decrease/stop cannabis use as it can negatively impact mood, motivation, anxiety, sleep, focus/concentrat ion/memory (vigilance, elasticity, processing and attention); can also contribute to development of psychosis. Recommend decrease/stop cannabis use as it may be negatively impacting mood, motivation, anxiety, sleep, focus; can also contribute to development of psychosis Cannabis/marijua na information: http_s://justin.ni h.gov/publicatio ns/drugfacts/can nabis-marijuana http_s://www.bettercodes.org.Nudipay Mobile Payment/can bhxib-vai-trxywr pe-mqydyzhst-tlb d/ websites http_s://www.nim h.nih.gov/health /topics/mental-h ealth-medication s http_s://www.nam i.org/About-Ment al-Illness/Treat ments/Mental-Hea lth-Medications http_s://www.nam i.org/About-Ment al-Illness/Menta k-Yqccog-Kmcbtuh ons http_s://psychce ConsiderC.Nudipay Mobile Payment/depres renzo/the-cogniti fc-mqeptxkl-kq-d epression#treatm ents http__s://www.ni mh.nih.gov/healt h/topics/mental- health-medicatio ns http__s://www.na mi.org/About-Men kizzy-Illness/Natty tments/Mental-He alth-Medications http_s://justin.ni h.gov/publicatio ns/drugfacts/can nabis-marijuana http_s://www.Souktel/can diswh-oir-lvmace do-rzbvzqncy-vpz d/ 08/30/2024 Suicidal ideation (ICD-10 - R45.851) Suicidal Thoughts and Behavior: Care Instructions material was published, Suicidal Thoughts in a Family Member: Care Instructions material was published, Learning About Making a Suicide Safety Plan material was published, Learning About How to Get Help During a Mental Health Crisis material was published 1. Bipolar hx melonie hx [facility], [place] 08/06 presently taking Zyprexa 5 mg at bedtime and Prozac 20 mg daily stable on rx AIMS= 0 08/30/24 2. Anxiety Prozac 20 mg daily 3. Suicidal ideation stable on rx- reported improved discuss and educated on 984/911 safety plan- lives with grandma support educated on go to nearest ER with passive/active SI thoughts, plans intent Discussed and educated pt regarding benzodiazepines are generally not intended for prolonged use and that use can cause tolerance, dependence, depression, and associated memory issues including dementias (this list is not exhaustive). Benzodiazepine use is generally not recommended concurrently with pain medications and/or other controlled substances educated on all medications, benefits, side effects and risk, and educated on depression, anxiety, and ADHD, mood d/o and educated on compliance of medications, metabolic and movement d/o education appointment is, continue therapy discussion with patient about course of treatment and patient instructions. education on serotonin syndrome SSRI/SNRI side effects discussed including but not limited to, gastric upset, nausea, vomiting, diarrhea and/or constipation, weight changes, sexual side effects including loss of libido, increased suicidal thoughts/behavio rs in children and young adults, and serotonin syndrome. Second generation antipsychotics (SGAs) have metabolic syndrome issues with weight gain, increase in prolactin, increased waist circumference, increased lipids, and increased glucose. Thus routine monitoring of weight, metabolic labs, etc. is indicated. A general rank ordering of antipsychotics that have the greatest to the least risk of metabolic effects is olanzapine, quetiapine, risperidone, ziprasidone, and aripiprazole. However, weight gain can occur with all of these drugs and considerable variability exists among patients receiving the same drug regarding the risk of metabolic effects. Anti-psychotic agents not only increase the risk of metabolic disorder, they also increase the risk of CVA, akathisia, and movement disorders including EPS or tardive dyskinesia (more common with first generation antipsychotics) and more. Medication Management and Follow-Up - Plan: - Schedule follow-up appointments every 1-3 months to monitor the patient's response to the medication regimen. - Reinforce the importance of avoiding recreational drug use due to potential neurotoxicity and interactions with prescribed medications. Cannabis Use Education Recommend decrease/stop cannabis use as it can negatively impact mood, motivation, anxiety, sleep, focus/concentrat ion/memory (vigilance, elasticity, processing and attention); can also contribute to development of psychosis. Recommend decrease/stop cannabis use as it may be negatively impacting mood, motivation, anxiety, sleep, focus; can also contribute to development of psychosis Cannabis/marijua na information: http_s://justin.ni h.gov/publicatio ns/drugfacts/can nabis-marijuana http_s://www.Souktel/can xirma-zst-rzwvxs ph-kmfuamkqn-wxu d/ websites http_s://www.nim h.nih.gov/health /topics/mental-h ealth-medication s http_s://www.nam i.org/About-Ment al-Illness/Treat ments/Mental-Hea lth-Medications http_s://www.nam i.org/About-Ment al-Illness/Menta c-Roimms-Oqijviv ons http_s://psychce ConsiderC.com/depres renzo/the-cogniti vi-weguhitr-yf-d epression#treatm ents http__s://www.ni .nih.gov/healt h/topics/mental- health-medicatio ns http__s://www.na mi.org/About-Men kizzy-Illness/Natty tments/Mental-He alth-Medications http_s://justin.ni h.gov/publicatio ns/drugfacts/can nabis-marijuana http_s://www.bettercodes.org.Nudip[employer] Mobile Payment/can ohxms-dwr-prxnii rp-gfcehrifv-fla d/ 08/06/2024 Encounter for screening for depression (ICD-10 - Z13.31) 08/30/2024 Encounter for screening for depression (ICD-10 - Z13.31) Learning About Depression Screening material was published 1. Bipolar hx melonie hx [facility], [place] 08/06 presently taking Zyprexa 5 mg at bedtime and Prozac 20 mg daily stable on rx AIMS= 0 08/30/24 2. Anxiety Prozac 20 mg daily 3. Suicidal ideation stable on rx- reported improved discuss and educated on safety plan- lives with grandma support educated on go to nearest ER with passive/active SI thoughts, plans intent Discussed and educated pt regarding benzodiazepines are generally not intended for prolonged use and that use can cause tolerance, dependence, depression, and associated memory issues including dementias (this list is not exhaustive). Benzodiazepine use is generally not recommended concurrently with pain medications and/or other controlled substances educated on all medications, benefits, side effects and risk, and educated on depression, anxiety, and ADHD, mood d/o and educated on compliance of medications, metabolic and movement d/o education appointment is, continue therapy discussion with patient about course of treatment and patient instructions. education on serotonin syndrome SSRI/SNRI side effects discussed including but not limited to, gastric upset, nausea, vomiting, diarrhea and/or constipation, weight changes, sexual side effects including loss of libido, increased suicidal thoughts/behavio rs in children and young adults, and serotonin syndrome. Second generation antipsychotics (SGAs) have metabolic syndrome issues with weight gain, increase in prolactin, increased waist circumference, increased lipids, and increased glucose. Thus routine monitoring of weight, metabolic labs, etc. is indicated. A general rank ordering of antipsychotics that have the greatest to the least risk of metabolic effects is olanzapine, quetiapine, risperidone, ziprasidone, and aripiprazole. However, weight gain can occur with all of these drugs and considerable variability exists among patients receiving the same drug regarding the risk of metabolic effects. Anti-psychotic agents not only increase the risk of metabolic disorder, they also increase the risk of CVA, akathisia, and movement disorders including EPS or tardive dyskinesia (more common with first generation antipsychotics) and more. Medication Management and Follow-Up - Plan: - Schedule follow-up appointments every 1-3 months to monitor the patient's response to the medication regimen. - Reinforce the importance of avoiding recreational drug use due to potential neurotoxicity and interactions with prescribed medications. Cannabis Use Education Recommend decrease/stop cannabis use as it can negatively impact mood, motivation, anxiety, sleep, focus/concentrat ion/memory (vigilance, elasticity, processing and attention); can also contribute to development of psychosis. Recommend decrease/stop cannabis use as it may be negatively impacting mood, motivation, anxiety, sleep, focus; can also contribute to development of psychosis Cannabis/marijua na information: http_s://justin.ni h.gov/publicatio ns/drugfacts/can nabis-marijuana http_s://www.Souktel/can odpzv-isg-qwuvzo ws-afxbkfyul-bjr d/ websites http_s://www.nim h.nih.gov/health /topics/mental-h ealth-medication s http_s://www.nam i.org/About-Ment al-Illness/Treat ments/Mental-Hea lth-Medications http_s://www.nam i.org/About-Ment al-Illness/Menta r-Kttkas-Hvagews ons http_s://psychce Mineralist/depres renzo/the-cogniti bw-yozbromn-pl-d epression#treatm ents http__s://www.ni .nih.gov/healt h/topics/mental- health-medicatio ns http__s://www.na mi.org/About-Men kizzy-Illness/Natty tments/Mental-He alth-Medications http_s://justin.ni h.gov/publicatio ns/drugfacts/can nabis-marijuana http_s://www.Souktel/can setrm-ozn-zkooht uj-bjgkmbeja-cyp d/ 10/11/2024 Encounter for screening for depression (ICD-10 - Z13.31) Learning About Depression Screening material was published 1. Bipolar depresison hx melonie hx [facility], [place] 08/06 AIMS= 0 08/30/24 2. Anxiety- having depression and anxiety Increase Prozac 40 mg daily monitor for melonie and hypomania 3. Suicidal ideation stable on rx- reported improved discuss and educated on safety plan- lives with grandma support educated on go to nearest ER with passive/active SI thoughts, plans intent Discussed and educated pt regarding benzodiazepines are generally not intended for prolonged use and that use can cause tolerance, dependence, depression, and associated memory issues including dementias (this list is not exhaustive). Benzodiazepine use is generally not recommended concurrently with pain medications and/or other controlled substances educated on all medications, benefits, side effects and risk, and educated on depression, anxiety, and ADHD, mood d/o and educated on compliance of medications, metabolic and movement d/o education appointment is, continue therapy discussion with patient about course of treatment and patient instructions. education on serotonin syndrome SSRI/SNRI side effects discussed including but not limited to, gastric upset, nausea, vomiting, diarrhea and/or constipation, weight changes, sexual side effects including loss of libido, increased suicidal thoughts/behavio rs in children and young adults, and serotonin syndrome. Second generation antipsychotics (SGAs) have metabolic syndrome issues with weight gain, increase in prolactin, increased waist circumference, increased lipids, and increased glucose. Thus routine monitoring of weight, metabolic labs, etc. is indicated. A general rank ordering of antipsychotics that have the greatest to the least risk of metabolic effects is olanzapine, quetiapine, risperidone, ziprasidone, and aripiprazole. However, weight gain can occur with all of these drugs and considerable variability exists among patients receiving the same drug regarding the risk of metabolic effects. Anti-psychotic agents not only increase the risk of metabolic disorder, they also increase the risk of CVA, akathisia, and movement disorders including EPS or tardive dyskinesia (more common with first generation antipsychotics) and more. Medication Management and Follow-Up - Plan: - Schedule follow-up appointments every 1-3 months to monitor the patient's response to the medication regimen. - Reinforce the importance of avoiding recreational drug use due to potential neurotoxicity and interactions with prescribed medications. Cannabis Use Education Recommend decrease/stop cannabis use as it can negatively impact mood, motivation, anxiety, sleep, focus/concentrat ion/memory (vigilance, elasticity, processing and attention); can also contribute to development of psychosis. Recommend decrease/stop cannabis use as it may be negatively impacting mood, motivation, anxiety, sleep, focus; can also contribute to development of psychosis Cannabis/marijua na information: http_s://justin.ni h.gov/publicatio ns/drugfacts/can nabis-marijuana http_s://www.Souktel/can cpwmx-xyd-hhdnnq fa-msjkmrszg-bcu d/ websites http_s://www.[facility] h.nih.gov/health /topics/mental-h ealth-medication s http_s://www.nam i.org/About-Ment al-Illness/Treat ments/Mental-Hea lth-Medications http_s://www.nam i.org/About-Ment al-Illness/Menta m-Wizenm-Ngpcnlc ons http_s://BuzzSpice/depres renzo/the-cogniti vt-eucexxnv-st-d epression#treatm ents http__s://www.[facility].nih.gov/healt h/topics/mental- health-medicatio ns http__s://www.na mi.org/About-Men kizzy-Illness/Natty tments/Mental-He alth-Medications http_s://justin.ni h.gov/publicatio ns/drugfacts/can nabis-marijuana http_s://www.Souktel/can fmtqc-xpt-ernklm qv-lhudghhez-xcl d/ 10/11/2024 Encounter for screening for cardiovascular disorders (ICD-10 - Z13.6) 1. Bipolar depresison hx melonie hx [facility], [place] 08/06 AIMS= 0 08/30/24 2. Anxiety- having depression and anxiety Increase Prozac 40 mg daily monitor for melonie and hypomania 3. Suicidal ideation stable on rx- reported improved discuss and educated on 988/1 safety plan- lives with grandma support educated on go to nearest ER with passive/active SI thoughts, plans intent Discussed and educated pt regarding benzodiazepines are generally not intended for prolonged use and that use can cause tolerance, dependence, depression, and associated memory issues including dementias (this list is not exhaustive). Benzodiazepine use is generally not recommended concurrently with pain medications and/or other controlled substances educated on all medications, benefits, side effects and risk, and educated on depression, anxiety, and ADHD, mood d/o and educated on compliance of medications, metabolic and movement d/o education appointment is, continue therapy discussion with patient about course of treatment and patient instructions. education on serotonin syndrome SSRI/SNRI side effects discussed including but not limited to, gastric upset, nausea, vomiting, diarrhea and/or constipation, weight changes, sexual side effects including loss of libido, increased suicidal thoughts/behavio rs in children and young adults, and serotonin syndrome. Second generation antipsychotics (SGAs) have metabolic syndrome issues with weight gain, increase in prolactin, increased waist circumference, increased lipids, and increased glucose. Thus routine monitoring of weight, metabolic labs, etc. is indicated. A general rank ordering of antipsychotics that have the greatest to the least risk of metabolic effects is olanzapine, quetiapine, risperidone, ziprasidone, and aripiprazole. However, weight gain can occur with all of these drugs and considerable variability exists among patients receiving the same drug regarding the risk of metabolic effects. Anti-psychotic agents not only increase the risk of metabolic disorder, they also increase the risk of CVA, akathisia, and movement disorders including EPS or tardive dyskinesia (more common with first generation antipsychotics) and more. Medication Management and Follow-Up - Plan: - Schedule follow-up appointments every 1-3 months to monitor the patient's response to the medication regimen. - Reinforce the importance of avoiding recreational drug use due to potential neurotoxicity and interactions with prescribed medications. Cannabis Use Education Recommend decrease/stop cannabis use as it can negatively impact mood, motivation, anxiety, sleep, focus/concentrat ion/memory (vigilance, elasticity, processing and attention); can also contribute to development of psychosis. Recommend decrease/stop cannabis use as it may be negatively impacting mood, motivation, anxiety, sleep, focus; can also contribute to development of psychosis Cannabis/marijua na information: http_s://justin.ni h.gov/publicatio ns/drugfacts/can nabis-marijuana http_s://www.bettercodes.org.Nudip[employer] Mobile Payment/can izcol-vnf-umimlm zq-pzvveyace-phb d/ websites http_s://www.nim h.nih.gov/health /topics/mental-h ealth-medication s http_s://www.nam i.org/About-Ment al-Illness/Treat ments/Mental-Hea lth-Medications http_s://www.nam i.org/About-Ment al-Illness/Menta g-Wmisaq-Qqtiuma ons http_s://psychce Mineralist/roxanaalbert muller/the-cogniti fj-wafmwtrx-sx-d epression#treatm ents http__s://www.ni .nih.gov/healt h/topics/mental- health-medicatio ns http__s://www.na mi.org/About-Men kizzy-Illness/Natty tments/Mental-He alth-Medications http_s://justin.ni h.gov/publicatio ns/drugfacts/can nabis-marijuana http_s://www.Souktel/can qmlki-xwb-lqhzkp cn-fqytfkzbf-try d/ 08/30/2024 Encounter for screening for cardiovascular disorders (ICD-10 - Z13.6) 1. Bipolar hx melonie [facility], [place], operated by [facility] 08/06 presently taking Zyprexa 5 mg at bedtime and Prozac 20 mg daily stable on rx AIMS= 0 08/30/24 2. Anxiety Prozac 20 mg daily 3. Suicidal ideation stable on rx- reported improved discuss and educated on 988/911 safety plan- lives with grandma support educated on go to nearest ER with passive/active SI thoughts, plans intent Discussed and educated pt regarding benzodiazepines are generally not intended for prolonged use and that use can cause tolerance, dependence, depression, and associated memory issues including dementias (this list is not exhaustive). Benzodiazepine use is generally not recommended concurrently with pain medications and/or other controlled substances educated on all medications, benefits, side effects and risk, and educated on depression, anxiety, and ADHD, mood d/o and educated on compliance of medications, metabolic and movement d/o education appointment is, continue therapy discussion with patient about course of treatment and patient instructions. education on serotonin syndrome SSRI/SNRI side effects discussed including but not limited to, gastric upset, nausea, vomiting, diarrhea and/or constipation, weight changes, sexual side effects including loss of libido, increased suicidal thoughts/behavio rs in children and young adults, and serotonin syndrome. Second generation antipsychotics (SGAs) have metabolic syndrome issues with weight gain, increase in prolactin, increased waist circumference, increased lipids, and increased glucose. Thus routine monitoring of weight, metabolic labs, etc. is indicated. A general rank ordering of antipsychotics that have the greatest to the least risk of metabolic effects is olanzapine, quetiapine, risperidone, ziprasidone, and aripiprazole. However, weight gain can occur with all of these drugs and considerable variability exists among patients receiving the same drug regarding the risk of metabolic effects. Anti-psychotic agents not only increase the risk of metabolic disorder, they also increase the risk of CVA, akathisia, and movement disorders including EPS or tardive dyskinesia (more common with first generation antipsychotics) and more. Medication Management and Follow-Up - Plan: - Schedule follow-up appointments every 1-3 months to monitor the patient's response to the medication regimen. - Reinforce the importance of avoiding recreational drug use due to potential neurotoxicity and interactions with prescribed medications. Cannabis Use Education Recommend decrease/stop cannabis use as it can negatively impact mood, motivation, anxiety, sleep, focus/concentrat ion/memory (vigilance, elasticity, processing and attention); can also contribute to development of psychosis. Recommend decrease/stop cannabis use as it may be negatively impacting mood, motivation, anxiety, sleep, focus; can also contribute to development of psychosis Cannabis/marijua na information: http_s://justin.ni h.gov/publicatio ns/drugfacts/can nabis-marijuana http_s://www.Souktel/can sddsd-noj-nuawam hb-lfhwspdmy-egf d/ websites http_s://www.nim h.nih.gov/health /topics/mental-h ealth-medication s http_s://www.nam i.org/About-Ment al-Illness/Treat ments/Mental-Hea lth-Medications http_s://www.nam i.org/About-Ment al-Illness/Menta q-Fdcqxu-Liadfcj ons http_s://psychce ConsiderC.[employer]/depralbert muller/the-cogniti bi-bvqynltt-nd-d epression#treatm ents http__s://www.ni .nih.gov/healt h/topics/mental- health-medicatio ns http__s://www.na mi.org/About-Men kizzy-Illness/Natty tments/Mental-He alth-Medications http_s://justin.ni h.gov/publicatio ns/drugfacts/can nabis-marijuana http_s://www.Souktel/can tscxq-icz-lxhxnz hb-tcpsabylv-lis d/ 10/11/2024 Negative depression screening (ICD-10 - Z13.31) 1. Bipolar depresison hx melonie hx [facility], [place] 08/06 AIMS= 0 08/30/24 2. Anxiety- having depression and anxiety Increase Prozac 40 mg daily monitor for melonie and hypomania 3. Suicidal ideation stable on rx- reported improved discuss and educated on safety plan- lives with grandma support educated on go to nearest ER with passive/active SI thoughts, plans intent Discussed and educated pt regarding benzodiazepines are generally not intended for prolonged use and that use can cause tolerance, dependence, depression, and associated memory issues including dementias (this list is not exhaustive). Benzodiazepine use is generally not recommended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
--- OUTSIDE RECORDS SUMMARY | 2024-12-28 16:54 | XMS_ITS | Continuity of Care Document ---
Author Organization [facility] Address [address] [place] [address] Phone Care Team Providers Care Armored Service Technician Name Role Phone Lottie Rubi MD Unavailable Unavailable Allergies, Adverse Reactions, Alerts Substance Reaction Status Criticality No Known Allergies Active No Inform ation Medications Medication Instructions Dosage Effective Dates (start - stop) Status Comments Wixela Inhub 250 mcg-50 mcg/dose powder for inhalation inhale 1 puff by inhalation route 2 times every day in the morning and evening approximately 12 hours apart 1.00 puff - Active Patient will need appointment for further refill Auvi-Q 0.3 mg/0.3 mL injection, auto-injector inject 0.3 milliliter by intramuscular route into thigh once as needed for anaphylaxis. Dx: Food allergy - Active 2 dual pack. EpiPen 2-Danny 0.3 mg/0.3 mL injection, auto-injector inject 0.3 milliliter by intramuscular route into thigh once as needed for anaphylaxis. Dx: Food allergy. - Active ok to sub mylan generic Singulair 10 mg tablet TAKE 1 TABLET BY MOUTH EVERY DAY IN THE EVENING - Active Symbicort 160 mcg-4.5 mcg/actuation HFA aerosol inhaler inhale 2 puff by inhalation route 2 times every day in the morning and evening 2.00 puff - Active VENTOLIN HFA 90 MCG INHALER TAKE 2 PUFFS BY MOUTH EVERY 4 TO 6 HOURS NEEDED - Active EpiCeram topical emulsion, extended release Apply twice daily to face and body as needed for eczema - Active mometasone 0.1 % topical ointment apply by topical route every day a thin layer to the affected area(s) as needed - Active Auvi-Q 0.3 mg/0.3 mL injection, auto-injector inject 0.3 milliliter by intramuscular route once as needed for anaphylaxis 0.3 MG - Active Ventolin HFA 90 mcg/actuation aerosol inhaler inhale 2 puff by inhalation route every 4 - 6 hours as needed - Active cetirizine 10 mg tablet take 1 tablet by oral route every day 10 MG - Active Wixela Inhub 250 mcg-50 mcg/dose powder for inhalation inhale 1 puff by inhalation route 2 times every day in the morning and evening approximately 12 hours apart 1.00 puff - No Longer Active Procedures Procedure Date PREVENTIVE COUNSELING, INDIV PF Pre/Post Bronchodlator Health Risk Assesment Patient Focused Oc Mouth piece Est (Level 4) OFFICE/OUTPATIENT VISIT Oc PREVENTIVE COUNSELING, INDIV Est (Level 3) OFFICE/OUTPATIENT VISIT Ma Flow Volume Loop Exhaled Nitric Oxide Mathew Mouth piece Est (Level 4) OFFICE/OUTPATIENT VISIT No PF Pre/Post Bronchodlator EVALUATE PT USE OF INHALER Exhaled Nitric Oxide Mathew Mouth piece Albuterol comp unit Est (Level 4) OFFICE/OUTPATIENT VISIT Ju Est (Level 4) OFFICE/OUTPATIENT VISIT Ma PREVENTIVE COUNSELING, INDIV Flow Volume Loop Exhaled Nitric Oxide Mathew Mouth piece Flow Volume Loop Mouth piece Health Risk Assesment Patient Focused Est (Level 3) OFFICE/OUTPATIENT VISIT PREVENTIVE COUNSELING, INDIV PF Pre/Post Bronchodlator EVALUATE PT USE OF INHALER Mouth piece Albuterol comp unit Health Risk Assesment Patient Focused Consult (Level 4) OFFICE CONSULTATION Advance Directives Directive Yes / No Effective Date File Name No Information Encounters Encounter Description Practice Location Reason(s) For Visit Diagnoses Date Provider Providers Copied on Encounter [facility], [address] [place] [address], [address] [place] [address], tel:[phone] [facility] No Information 2 Greyson Lottie. [address] [place] [address], [id number] , . tel: [phone] [facility], [address] [place] [address], [id number], tel:[phone] [facility] No Information 2 Greyson Lottie. [address] [place] [address], [address], [id number] , [place]. tel: [phone] [facility], [address] [place] [address], [id number], tel:[phone] [facility] No Information 2 Greyson Lottie. [address] [place] [address], [address], [id number] , . tel: [phone] [facility], [address] [place] [address], [id number], [place] tel:[phone] [facility] No Information 1 Greyson Tafoya. [address] [place] [address], [address], [place], [place], [id number] , [place]. tel:[phone] PREVENTIVE COUNSELING, INDIV [facility], [address] [place] [address], [id number], [place] tel:[phone] [facility] allergies and asthma (chief complaint) AsthmaOther adverse food reaction, subsequent encounterAllergy to peanuts 1 Greyson Tafoya. [address] [place] [address], [address], [place], [place], [id number] , [place]. tel:[phone] Referring Provider: Rosette Morgan [facility] [facility] [address], [place], [address]. tel:[phone] [facility], [address] [place] [address], [id number], [place] tel:[phone] [facility] No Information 1 Agustin David. [address] [place] [address], [address], [place], [place], [id number] , [place]. tel:[phone] PREVENTIVE COUNSELING, INDIV [facility], [address] [place] [address], [id number], [place] tel:[phone] [facility] Allergies, Asthma & Food Allergy (chief complaint) Other adverse food reaction, subsequent encounterOther allergic rhinitisAllergy to peanutsAllergy to nut other than peanut September- 0 Greyson Tafoya. [address] [place] [address], [address], [place], [place], [id number] , [place]. tel:[phone] Referring Provider: Lottie Rubi, [address] [place] [address] [address], [place], [address] . tel:[phone] Est (Level 4) OFFICE/OUTPA TIENT VISIT [facility], [address] [place] [address], [id number], tel:[phone] [facility] allergies and asthma (chief complaint) AsthmaEczemaOther adverse food reaction, subsequent encounterAllergy to peanutsAllergy to nut other than peanut 9 Greyson Tafoya. [address] [place] [address], [address], [place], [place], [id number] , . tel:[phone] Referring Provider: Rosette Morgan, [address] [facility] [address], [place], [address]. tel:[phone] Est (Level 4) OFFICE/OUTPA TIENT VISIT [facility], [address] [place] [address], [address] [place] [address], tel:[phone] [facility] allergies and asthma (chief complaint) AsthmaOther allergic rhinitisAtopic dermatitis Greyson Tafoya. [address] [place] [address], [place] [address], [place], [place], [id number] , . [phone] Referring Provider: Lottie Rubi, [address] [place] [address] [address] [facility], [place], [place], [address] [place] [address] . tel:[phone] [facility], [address] [place] [address], [address] [place] [address], tel:[phone] [facility] No Information 9 Greyson Tafoya. [address] [place] [address], [place] [address], [place], [place], [id number] , . [phone] Referring Provider: Lottie Rubi, [address] [place] [address] [address] [facility], [place], [place], [address] [place] [address] . tel:[phone] Est (Level 4) OFFICE/OUTPA TIENT VISIT [facility], [address] [place] [address], [id number], tel:[phone] [facility] Asthma (chief complaint) AsthmaOther allergic rhinitisOther adverse food reaction, subsequent encounterAllergy to peanutsAllergy to nut other than peanutAtopic dermatitis 9 Greyson Tafoya. [address] [place] [address], [address] [facility], [place], [place], [address] [place] [address] , . tel:[phone] Referring Provider: Lottie Rubi, [address] [place] [address] [address] [facility], [place], [address] [place] [address] . tel:[phone] Est (Level 3) OFFICE/OUTPA TIENT VISIT [facility], [address] [place] [address], [address] [place] [address], tel:[phone] [facility] asthma (chief complaint) AsthmaEczema Greyson Tafoya. [address] [place] [address], [place] [address], [place], [address] [place] [address] , . tel:[phone] Referring Provider: Lottie Rubi, [address] [place] [address] [address] [facility], [place], [address] [place] [address] . tel:[phone] PREVENTIVE COUNSELING, INDIV [facility], [address] [place] [address], [address] [place] [address], tel:[phone] [facility] allergy symptoms (chief complaint) EczemaAsthmaOther allergic rhinitisAllergy to peanutsAllergy to nut other than peanutOther adverse food reaction, initial encounter 7 Greyson Tafoya. [address] [place] [address], [place] [address], [place], [address] [place] [address] , . tel:[phone] Referring Provider: Paul Winter[address] [facility] [address], [place], [address]. tel:[phone] Family History Family Member Type Diagnosis Age At Onset Problem (finding) No family history of Ec zema Mother Problem (finding) Allergies Problem (finding) Family history of Aller gic rhinitis Problem (finding) No family history of As thma Payers Payer name Insurance type Covered democrat ID Authoriza tion(s) No Information Social History Type Description Quantity Date Captured Comments Sex Male Smoking Status No Information Chief Complaint And Reason For Visit No Information Reason For Referral Reason For Referral No Information Plan Of Treatment Date Type Action Status Future Order: Lab Order Allergen Profile With Total IgE, Respiratory Area 8 ([id number]), Ordered on: Ordered Future Order: Lab Order Allergen Profile, Nut, IgE With Component Reflexes* ([id number]), Ordered on: Ordered History Of Present Illness Encounter Date Complaint History Of Prese nt Illness allergies and asthma LV: 10/02/19 Today is a follow-up visit for asthma, allergic rhinitis, eczema and food allergy (P/TN).Meds: Flovent 110mcg 2 puffs once daily, Singulair 10mg qhs, cetrizine and topical mometasone prn. No nightmares but does have anxiety/depression. He reports that breathing symptoms are under good control. No ER visits or oral steroid courses. He has not used albuterol. He reports he doesn't have one. Spring allergies were not well-controlled. He used to use a nasal steroid but no longer does. Eczema has been well-controlled. He has continued to scratch less. He is not using mometasone frequently. No accidental ingestions of peanut or tree nuts. Labs 10/17/2016 showed sensitivity to trees, grasses, weeds, molds, dog, cat, cockroach and dust mite. Peanut and Arah2 >100. Allergies, Asthma & Food Allergy This visit takes place over teleRapportive video platform ([employer]) with the patient in their home.LV: 04/10/2019Today is a follow-up visit. History provided by Nikita and his mother. He had increased rhinitis and conjunctivitis symptoms this spring. He has been taking Qvar 80mcg 2 puffs BID, Singulair 10mg qhs, cetrizine and topical mometasone prn. His asthma has been well-controlled on Qvar. No ER visits or oral steroid courses. He has not had to use albuterol. Eczema has been well-controlled. He has not had flares or had to use mometasone. He states he was able to break his habit of scratching and this helped exponentially. No accidental ingestions of peanut. He started sertraline and melatonin about 1.5 years ago. Mom was going through a divorce at the time and they were moving. Difficulty with sleep was falling asleep. No nightmares. Labs 10/17/2016 showed sensitivity to trees, grasses, weeds, molds, dog, cat, cockroach and dust mite. Peanut and Arah2 >100. allergies and asthma LV: 12/01/19 19He returns today for follow-up. He is accompanied by his stepmother. 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 He has been taking Qvar 80mcg 2 puffs qday (he typically forgets the evening dose), Singulair 10mg qhs, cetrizine and topical mometasone prn. He is doing very well. He is not using albuterol never. Denies exertional symptoms, but notes he has not been exercising and is not in gym. Denies nocturnal awaking. He denies having any problems with breathing and states he is doing very well. Stepmom notes that he seems to have perennial nasal congestion. No pets at either parents' house. He is not using a nasal steroid. He is applying lotions to his skin frequently and eczema has been improved. He continues to strictly avoid peanut and tree nuts. No interval accidental ingestions. He has seen [facility] D[facility]ology in the past but not recently. Labs 10/17/2016 showed sensitivity to trees, grasses, weeds, molds, dog, cat, cockroach and dust mite. Peanut and Arah2 >100. allergies and asthma LV: 10/03/19 19He returns today for follow-up of his asthma. He is accompanied by his stepmother. He also has a history of asthma, allergic rhinitis, severe eczema and food allergy to peanut and tree nuts. He was taking Advair 100 diskus qday until about a week before his last visit when he was told it was not covered by insurance and he was changed to Qvar. He denies any increased symptoms on Qvar, but had decreased FEV1 and elevated FeNO at this last visit. I increased Singulair and asked him to return today. He states that he is not having any problems and reports that symptoms are stable. Denies exertional cough/dyspnea and nocturnal awakening. He has some rhinorrhea/congestion, but rhinitis symptoms overall stable. He is taking Singulair 10mg and cetirizine. He is not using a nasal steroid. His eczema is overall improved, but he has had some flares on his wrists. He did not get EpiCeram . He is using mometasone prn. Labs 10/17/2016 showed sensitivity to trees, grasses, weeds, molds, dog, cat, cockroach and dust mite. Peanut and Arah2 >100. Asthma LV: 12/08/2018He returns today for follow-up. He is accompanied by his stepmother. He also has a history of asthma, allergic rhinitis, severe eczema and food allergy to peanut and tree nuts. He was taking Advair 100 diskus qday until about a week ago when he ran out and started on Qvar 80 (tier 1 for him). He continues on Singulair. He has not been needing albuterol, but also is out of it. No interval oral steroid courses for asthma or ER visits. He denies exertional symptoms. He had increased allergy symptoms this spring. He had a lot of sniffling and sneezing. He has also had some cough. He takes Zyrtec and Singulair. He is not using any nasal sprays. His eczema has improved since his last visit. He applies Vaseline and Aveeno. He is not using any topical steroids. He has seen [facility] Derm[facility]ology in the past. He continues to strictly avoid peanut and tree nuts. No interval accidental ingestions. Labs 10/17/2016 showed sensitivity to trees, grasses, weeds, molds, dog, cat, cockroach and dust mite. Peanut and Arah2 >100. asthma His last visit w as 10/17/2016. He is accompanied by his step-father. He returns today for follow-up of his asthma. He also has a history of allergic rhinitis, severe eczema and food allergy to peanut and tree nuts. At his last visit, he was noted to have obstruction on PFTs which reversed with albuterol. I advised he increase Advair 100 diskus from qday to BID and continue Singulair. He denied asthma symptoms or lower respiratory symtpoms at his last visit. He has increased use of Advair 100 but is mostly using it once daily (previously he was using it only infrequently he reports today). No change in symptoms. His eczema initially worsened and then has seemed to improve over the last 2 weeks. He is applying Vaseline frequently including after baths/showers and mometasone. He is not ususally doing bleach baths or swimming. He has an appt scheduled with [facility] Pediatric Dermatology but step-dad does not know when it is. Labs 10/17/2016 showed sensitivity to trees, grasses, weeds, molds, dog, cat, cockroach and dust mite. Peanut and Arah2 >100. He continues to strictly avoid peanut and tree nuts. allergy symptoms This is his ini tia visit. He is referred for evaluation of allergies, asthma, food allergy and eczema. Parents main concern in his eczema. He has had eczema since infancy. It has gotten better as he has gotten older but skin is still flared. Typical sites are AC fossas, neck, wrists and popliteal fossas. He takes bleach baths BID. He uses Aveeno sensitive skin, Aquaphor daily and mometasone ointment prn. He was on Elidel years ago and he and family are unsure to what degree it helps (mom does not think it helped more than mometasone). Antibiotics most help to clear his skin. He has seen Dermatology in the past but not recently. He has had wheezing since infancy. He Advair diskus 100 1 inhlalation once daily, Singulair and Zyrtec. His last asthma exacerbation was ~6 years ago. He was previously on a higher dose and strength. He reduced to once daily about 2 years ago. He has not had a trial off or on a step down med. No nocturnal or exertonal symptoms. No hospital admits or oral steroid courses parents were aware of. He is running track without problems. He is not using albuterol. He reports increased allergy symptoms in the Spring and not typically an issue in the Winter. They are not sure if the Singulair helps. He strictly avoids peanuts and tree nuts. He had food allergy testing prompted by concern for egg allergy as an infant and he was found to be positive for nuts. He had an accidental ingestion 2-3 years ago of peanut containing cereal and had emesis. He does not have injectable epinephrine. No problems with recurrent infection. PMH: Allergies, eczema, food allergy, asthmaSurgery: Ear tubesNKDAFH: Mother - drug allergy, allergic rhinitis. No asthma or eczema. Social: He will start 8th grade in the Fall. There are 2 dogs at home. No smoke exposure at home but some of Dad's family members do. He is at his Dad's every other weekend. Functional Status Date Functional Assessmen t No Information Instructions Date Instruction Additional Infor dede - STOP Flovent. Inst ead START Symbicort 160/4.5mcg 2 puffs twice daily. - Trial OFF Singulair/montelukast when out of this refill. Add back if needed, particularly in the spring. Reason to do trial off is to see if you still need it and also to ensure you are not experiencing any side effects on it like anxiety or depression. - Continue cetrizine. ADD Flonase Sensimist 2 sprays/nostril daily for allergy symptoms as needed (ex. spring).- Avoid peanut and tree nuts. Follow-up: 3-6 months Related to Asthma Allergies:- Can try Xyzal over Zyrtec (samples given)- Continue Singulair (dose increased today per his age)- ADD Flonase Sensimist 2 sprays/nostril daily (especially in peak allergy seasons)- Consider allergy injectionsAsthma:- Continue Qvar 80mcg 2 puffs twice daily- Albuterol (rescue inhaler) every 4-6 hours as needed- Notify me if symptoms not well-controlledEczema- Add mometasone (topical steroid) as needed for flares- Add EpiCeram (skin emulsifier - NOT a topical steroid), which can be used twice daily. Will be prescribed to a mail order pharmacy who will call you directly. Please call us if they have not contacted you. Continue to avoid peanut and tree nuts. Related to Asthma If signs/symptoms of poorly controlled asthma occur- contact our office Related to Asthma 1. Soak for 20-30 mi nutes in a lukewarm bath/shower until fingertips wrinkle.2. After bathing, dry off only partially by patting with a towel - do not rub.3. Within 3 minutes, apply steroid ointment to red, itchy areas (mometasone 0.1% ointment- do not apply to face or genitals) and Hydrocortisone OTC 1% to the face (and can be applied to the rest of his body as well) once per day). Apply moisturizer/emollients to other areas.4. Soaps- Dove bar soap, Cetaphil Sheet Layer (or generic), Vanicream bar soap5. Bleach- 2 tablespoons per tub of water of household bleach to bath may be useful in reducing skin Staphylococcus colonization and skin outbreaks.6. Wet pajamas soaks during bedtime may be useful. Dry pajamas can be worn over very damp pajamas during sleep.Emollients may be applied 4-6 times daily.Vaseline (petrolatum or petroleum jelly), CereVe, Cetaphil lotion, Aquaphor, EpiCeram (prescription) Related to Eczema If signs/symptoms of poorly controlled asthma occur- contact our office Related to Asthma Assessments Type Assessment Date No Information Patient Care Teams Name Effective Dates (start - stop) Status Members No Information
--- OUTSIDE RECORDS SUMMARY | 2024-12-28 16:54 | XMS_ITS | Clinical Summary ---
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 This disclosure is being madepursuant to the Care Everywhere program and may not contain all information available regarding this patient. Last updated 18.[facility] Allergies Active Allergy Reactions Criticality Noted Date Comments Peanut-Derived 01/20/2010 Foods that contain peanuts cause edema, vomiting, and hives Tree Nuts 09/07/2010 Medications * Be aware that medications may not be up to date on this document. Alwaysverify current medications with the patient. EPINEPHrine (EPIPEN 2-JUAN ALBERTO) 0.3 MG/0.3ML auto-injectorI ndications:Sarabjit d allergy Inject 0.3 mL into muscle once as needed for Anaphalaxysis for 1 dose. 2 Package 0 1 Active cetirizine (ZYRTEC ALLERGY) 10 MG gel capsuleIndicat ions:Allergic rhinitis,Food allergy Take 1 Cap by mouth once daily. 30 Cap 6 2 Active montelukast (SINGULAIR) 5 MG chew tabletIndicati ons:Asthma,All ergic rhinitis Take 1 Tab by mouth at bedtime. 30 Tab 0 3 Active fluticasone-sa lmeterol (ADVAIR DISKUS) 100-50 MCG/DOSE inhalerIndicat ions:Asthma Inhale 1 Puff by mouth 2 times daily. 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 Asthma 11/30/2009 Resolved Problems Problem Noted Date Diagnosed Date Resolved Date Other acute infections of external ear 11/30/2009 01/19/2010 Immunizations Immunization Administration Dates Next Due INFLUENZA VACCINE 03/27/2012 Family History Medical History Relation Name Comments Strabismus Mother Glasses at a yo sharla age Amblyopia Neg Hx Anesthesia Reaction Neg Hx Bleeding Disorders Neg Hx Childhood Hearing Disorder Neg Hx Relation Name Status Comments Mother Social History Tobacco Use Types Packs/Day Years Used Date Smoking Tobacco: Never Assessed Sex and Gender Information Value Date Recorded Sex Assigned at Not on file 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 Gender Identity Not on file Sexual Orientation Not on file Last Filed Vital Signs Vital Sign Reading Time Taken Comments Blood Pressure 92/58 03/27/2012 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 Pulse 90 09/07/2010 3:58 PM CDT Temperature - - Respiratory Rate 20 09/07/2010 3:58 PM CDT Oxygen Saturation - - Inhaled Oxygen Concentration - - Weight 37.2 kg (82 lb) 03/27/2012 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 Height 142.4 cm (4' 8.06) 03/27/2012 3:42 PM CS T Body Mass Index 18.34 03/27/2012 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 Plan of Treatment Health Maintenance Due Date Last Done Comments HIV SCREENING 2018 HPV VACCINE (1 - Male 3-dose series) 2018 MENINGOCOCCAL (Group B) VACC INE SHARED DECISION-MAKING (1 of 2 - Standard) 2019 HEPATITIS C SCREENING 02/24/2021 DTAP/TDAP/TD VACCINES (1 - Tdap) 2022 HEPATITIS B VACCINE (1 of 3 - 19+ 3-dose series) 2022 COVID-19 VACCINE (1 - 2023-2 5 season) 2024 DEPRESSION SCREENING 05/15/2024 INFLUENZA VACCINE (#1) 2025 03/27/2012 ZOSTER VACCINE (1 of 2) 2053 HIB VACCINE Aged Out No longer eligi ble based on patient's age to complete this topic MENINGOCOCCAL GROUPS A/C/Y/W VACCINE Aged Out No longer eligible b ased on patient's age to complete this topic PNEUMOCOCCAL VACCINE Aged Out No long er eligible based on patient's age to complete [place] [address] [place] [address] [facility] [address] [facility] Care Teams Farm Tractor 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
--- NOTE | 2024-12-28 17:50 | ED_ITS ---
HPI - Psych General Chief Complaint: Psychiatric Symptoms <MELANIE Morrow Last Filed: 12/29/24 02:04> Stated Complaint: med change, getting worse, pt bipolar <MELANIE Morrow Last Filed: 12/29/24 02:04> Time Seen by Provider: 12/28/24 17:32 <MELANIE Morrow Last Filed: 12/29/24 02:04> Source: patient <MELANIE Morrow Last Filed: 12/29/24 02:04> Mode of arrival: ambulatory <MELANIE Morrow Last Filed: 12/29/24 02:04> Limitations: altered mental status and clinical condition <MELANIE Morrow Last Filed: 12/29/24 02:04> History of Present Illness HPI Narrative: Patient is a 19 y/o male, with PMH of bipolar disorder, who presents to the ED with c/o agitation. Grandmother at bedside, currently lives with patient, assisted in providing information. She reports that patient is supposed to be on olanzapine and duloxetine. She states that last Monday she began noticing changes in his behavior, increased manic activity, increased aggression. They saw a psychiatric clinic on Monday and patient was started on Abilify. Has had 2 doses of this, but the behaviors have worsened today, which prompted them to bring patient here. Patient's grandparents deny any report of suicidal or homicidal thoughts or actions over the past several days. Patient has reportedly had 3 similar episodes like this since last March. He has been hospitalized each time. <MELANIE Morrow Last Filed: 12/29/24 02:04> Related Data Home Medications: Home Medications ?Medication ?Instructions ?Recorded ?Confirmed ?Last Taken ?Type albuterol sulfate 90 mcg/actuation inhalation 06/12/24 06/12/24 Unknown History aerosol inhaler aripiprazole 15 mg tablet mg PO 06/12/24 06/12/24 Unknown History cetirizine 10 mg capsule (Zyrtec) 10 mg PO DAILY PRN 06/12/24 06/12/24 Unknown History epinephrine 0.3 mg/0.3 mL IM 06/12/24 06/12/24 Unknown History injection, auto-injector fluticasone 100 mcg-salmeterol 50 inhalation 06/12/24 06/12/24 Unknown History mcg/dose blistr powdr for inhalation montelukast 10 mg tablet mg PO 06/12/24 06/12/24 Unknown History omega 1-goq-kbk-fish oil 100 cap PO 06/12/24 06/12/24 Unknown History mg-160 mg-1,000 mg capsule (Fish Oil) <Shivani Nieves PA-C - Last Filed: 12/29/24 02:04> Allergies/Adverse Reactions: Allergies Allergy/AdvReac Type Severity Reaction Status Date / Time latex Allergy Unknown Unknown Verified 12/28/24 18:48 nut - unspecified AdvReac Severe Anaphylaxis Verified 12/28/24 18:48 <Shivani Nieves PA-C - Last Filed: 12/29/24 02:04> Review of Systems 2 Review of Systems: ROS unobtainable: Yes unobtainable due to mental status <Shivani Nieves PA-C - Last Filed: 12/29/24 02:04> [facility] Past Medical History Medical History: Medical History No pertinent past medical history <Shivani Nieves PA-C - Last Filed: 12/29/24 02:04> Surgical History Surgical History: Surgical History [place] teeth extracted No pertinent past surgical history <Shivani Nieves PA-C - Last Filed: 12/29/24 02:04> Family History Family History: Family History Mother Depression Anxiety <Shivani Nieves PA-C - Last Filed: 12/29/24 02:04> Social History Social History: Social History Smoking status: Never smoker Alcohol intake: never Substance use: former Substance use type: marijuana Do You Feel Safe in your Home?: Yes Lack of Transportation: No Lack of Food: Never True Current Housing: I Have Housing Concerned About Future Housing: No Difficulty Paying Gas/Electric Bills: No Difficulty Paying for Meds: No Currently Unemployed: No Education: High School Diploma/GED Difficulty w/ Childcare or Family Care: No Living arrangements: with family <Shivani Nieves PA-C - Last Filed: 12/29/24 02:04> Exam 2 Narrative: GENERAL: Agitated, non-toxic, well-nourished HEAD: Normocephalic, atraumatic. RESPIRATORY: Airway patent, respirations nonlabored. CARDIOVASCULAR: Regular rate and rhythm MUSCULOSKELETAL: Moves all extremities. No gross deformities. SKIN: Warm, dry, normal color. NEURO: Alert, answers some questions but difficult to redirect, agitated, somewhat combative, frequently trying to leave ED room. Speech clear. Steady gait. No ataxic movements. No appreciable focal deficits. PSYCHIATRIC: Agitated, manic thoughts at times, tangential speech <Shivani Nieves PA-C - Last Filed: 12/29/24 02:04> [employer]/PA Physician Supervision This visit was performed by both a physician and an APC. I performed all aspects of the MDM as documented. <Ivan Perkins MD - Last Filed: 12/29/24 06:54> Reevaluation(s) Reevaluation #1: Patient was extremely agitated combative I did give him ketamine 50 mg IM on the left glute <Lance Mcdonnell MD - Last Filed: 12/28/24 19:16> Vital Signs Vital signs: Vital Signs Temperature 36.7 C 12/28/24 16:53 Pulse Rate 118 H 12/28/24 16:53 Respiratory Rate 18 12/28/24 16:53 Blood Pressure 152/95 H 12/28/24 16:53 Pulse Oximetry 100 12/28/24 16:53 Oxygen Delivery Room Air 12/28/24 16:53 Temperature 37.0 C 12/29/24 08:31 Pulse Rate 117 H 12/29/24 08:31 Respiratory Rate 16 12/29/24 07:00 Blood Pressure 150/80 H 12/29/24 08:31 Pulse Oximetry 100 12/29/24 08:31 Oxygen Delivery Room Air 12/28/24 16:53 <Shivani Nieves PA-C - Last Filed: 12/29/24 02:04> Vital Signs Temperature 36.7 C 12/28/24 16:53 Pulse Rate 118 H 12/28/24 16:53 Respiratory Rate 18 12/28/24 16:53 Blood Pressure 152/95 H 12/28/24 16:53 Pulse Oximetry 100 12/28/24 16:53 Oxygen Delivery Room Air 12/28/24 16:53 Temperature 37.0 C 12/29/24 08:31 Pulse Rate 117 H 12/29/24 08:31 Respiratory Rate 16 12/29/24 07:00 Blood Pressure 150/80 H 12/29/24 08:31 Pulse Oximetry 100 12/29/24 08:31 Oxygen Delivery Room Air 12/28/24 16:53 <Lance Mcdonnell MD - Last Filed: 12/28/24 19:16> Vital Signs Temperature 36.7 C 12/28/24 16:53 Pulse Rate 118 H 12/28/24 16:53 Respiratory Rate 18 12/28/24 16:53 Blood Pressure 152/95 H 12/28/24 16:53 Pulse Oximetry 100 12/28/24 16:53 Oxygen Delivery Room Air 12/28/24 16:53 Temperature 37.0 C 12/29/24 08:31 Pulse Rate 117 H 12/29/24 08:31 Respiratory Rate 16 12/29/24 07:00 Blood Pressure 150/80 H 12/29/24 08:31 Pulse Oximetry 100 12/29/24 08:31 Oxygen Delivery Room Air 12/28/24 16:53 <Ivan Perkins MD - Last Filed: 12/29/24 06:54> Vital Signs Temperature 36.7 C 12/28/24 16:53 Pulse Rate 118 H 12/28/24 16:53 Respiratory Rate 18 12/28/24 16:53 Blood Pressure 152/95 H 12/28/24 16:53 Pulse Oximetry 100 12/28/24 16:53 Oxygen Delivery Room Air 12/28/24 16:53 Temperature 37.0 C 12/29/24 08:31 Pulse Rate 117 H 12/29/24 08:31 Respiratory Rate 16 12/29/24 07:00 Blood Pressure 150/80 H 12/29/24 08:31 Pulse Oximetry 100 12/29/24 08:31 Oxygen Delivery Room Air 12/28/24 16:53 <Flo Wills MD - Last Filed: 12/29/24 12:02> MDM - Psych MDM Narrative Medical decision making narrative: Patient presented to ED with concern for change in behavior, agitation/aggression. History of bipolar disorder, reportedly stopped taking his medication last week. Patient agitated and combative upon my evaluation, difficult to redirect, unable to obtain any useful information. Posing a risk to himself, as well as ED staff and ED security. Attempted several different deescalation techniques without improvement. He did require chemical and physical restraints to protect safety of himself and staff. He was ultimately able to rest and was able to have physical restraints removed within a couple of hours. See additional nursing and restraint documentation. Patient now resting comfortably, in no acute distress. ED psych workup was initiated. Laboratory studies are unremarkable. Patient medically cleared to undergo psychiatric evaluation, likely involuntary psychiatric admission. Care signed out to Dr. Perkins at shift change pending crisis eval/dispo. < Shivani Nieves PA-C - Last Filed: 12/29/24 02:04> Patient presented to ED with concern for change in behavior, agitation/aggression. History of bipolar disorder, reportedly stopped taking his medication last week. Patient agitated and combative upon my evaluation, difficult to redirect, unable to obtain any useful information. Posing a risk to himself, as well as ED staff and ED security. Attempted several different deescalation techniques without improvement. He did require chemical and physical restraints to protect safety of himself and staff. He was ultimately able to rest and was able to have physical restraints removed within a couple of hours. See additional nursing and restraint documentation. Patient now resting comfortably, in no acute distress. ED psych workup was initiated. Laboratory studies are unremarkable. Patient medically cleared to undergo psychiatric evaluation, likely involuntary psychiatric admission. Care signed out to Dr. Perkins at shift change pending crisis eval/dispo. Gregorio Branch I assumed care from previous providers pending psychiatric evaluation. Patient has been resting comfortably and no longer an issue and was out of all restraints and ambulating without difficulty. Calm and cooperative. States he is willing to go to psychiatric hospitalization. He was already made involuntary status by the psychiatric/crisis team who has evaluated him. I did sign the involuntary form given his level of derangement and need for psychiatric hospitalization. He was given a low-dose Seroquel to help him sleep tonight. Patient was endorsed to the oncoming ER physician pending transfer to psychiatric hospital. <Ivan Perkins MD - Last Filed: 12/29/24 06:54> Patient presented to ED with concern for change in behavior, agitation/aggression. History of bipolar disorder, reportedly stopped taking his medication last week. Patient agitated and combative upon my evaluation, difficult to redirect, unable to obtain any useful information. Posing a risk to himself, as well as ED staff and ED security. Attempted several different deescalation techniques without improvement. He did require chemical and physical restraints to protect safety of himself and staff. He was ultimately able to rest and was able to have physical restraints removed within a couple of hours. See additional nursing and restraint documentation. Patient now resting comfortably, in no acute distress. ED psych workup was initiated. Laboratory studies are unremarkable. Patient medically cleared to undergo psychiatric evaluation, likely involuntary psychiatric admission. Care signed out to Dr. Perkins at shift change pending crisis eval/dispo. Gregorio - I assumed care from previous providers pending psychiatric evaluation. Patient has been resting comfortably and no longer an issue and was out of all restraints and ambulating without difficulty. Calm and cooperative. States he is willing to go to psychiatric hospitalization. He was already made involuntary status by the psychiatric/crisis team who has evaluated him. I did sign the involuntary form given his level of derangement and need for psychiatric hospitalization. He was given a low-dose Seroquel to help him sleep tonight. Patient was endorsed to the oncoming ER physician pending transfer to psychiatric hospital. Patient was signed out to me at shift change, later patient started to become agitated, 2 mg of Ativan IM, 10 mg of Zyprexa p.o. with slight improvement, 50 mg of Benadryl p.o. and 5 mg of Haldol IM with quite a bit of improvement. Patient was accepted for transferred to [facility], Dr. Espinoza. <Flo Wills MD - Last Filed: 12/29/24 12:02> Medical Records Attestation: I reviewed the patient's medical records. <Shivani Nieves PA-C - Last Filed: 12/29/24 02:04> Lab Data Attestation: I reviewed the patient's lab results. <Shivani Nieves PA-C - Last Filed: 12/29/24 02:04> Result diagrams: 12/28/24 17:54 12/28/24 17:54 <Shivani Nieves PA-C - Last Filed: 12/29/24 02:04> Labs: Lab Results 12/28/24 12/28/24 12/29/24 Range/Units 17:54 18:59 00:45 WBC 7.8 (4.5-10.0) K/mm3 RBC 5.15 (4.6-6.20) M/mm3 Hgb 15.7 (14.0-18.0) g/dL Hct 46.9 (42.0-52.0) % MCV 91.1 (80-100) fl MCH 30.5 (26-34) pg MCHC 33.5 (32-36) g/dl RDW 12.3 (11.5-14.5) % Plt Count 202 (150-375) k/mm3 MPV 9.9 (7.4-10.4) fl Immature Gran % (Auto) 0.4 (0-0.5) % Neut % (Auto) 64.4 (45.5-73.1) % Lymph % (Auto) 22.6 (18.3-44.2) % [place] % (Auto) 11.5 H (2.6-8.5) % Eos % (Auto) 0.8 (0-4.4) % Baso % (Auto) 0.3 (0.2-1.2) % Lymph # (Auto) 1.75 (0.9-3.2) K/mm3 [place] # (Auto) 0.9 H (0.1-0.6) K/mm3 Eos # (Auto) 0.1 (0-0.3) K/mm3 Baso # (Auto) 0.0 (0.0-0.1) K/mm3 Abs Immat Gran (auto) 0.03 (0.00-0.031) K/mm3 Absolute Neuts (auto) 5.0 (1.3-6.7) K/mm3 Absolute Nucleated RBC 0.000 (0.0-0.012) K/mm3 Nucleated RBC % 0.0 (0.0-0.2) % Sodium 143 (137-145) mmol/L Potassium 3.8 (3.4-5.0) mmol/L Chloride 104 (98-107) mmol/L Carbon Dioxide 25 (22-30) mmol/L Anion Gap 14 H (4-12) mmol/L BUN 9 (9-20) mg/dL Creatinine 0.95 (0.7-1.3) mg/dL Estim Creat Clear Calc 108 ml/min Estimated GFR > 60 (59 - ) Glucose 112 H (65-110) mg/dL Calcium 10.1 (8.4-10.2) mg/dL Total Bilirubin 1.8 H (0.2-1.3) mg/dL AST 29 (17-59) U/L ALT 17 (6-50) U/L Alkaline Phosphatase 64 (38-126) U/L Total Protein 9.2 H (6.3-8.2) g/dL Albumin 5.3 H (3.5-5.1) g/dL TSH 2.040 (0.465-4.680) uIU/mL Urine Color Dark yellow (Yellow) Urine Appearance Clear (Clear) Urine pH 6.0 (5.0-9.0) Ur Specific [place] 1.042 H (1.001-1.035) Urine Protein 1+ H (Negative) mg/dL Urine Glucose (UA) Negative (Negative) mg/dL Urine Ketones 1+ H (Negative) mg/dL Ur Blood (Man) Negative (Negative) Urine Nitrate Negative (Negative) Urine Bilirubin 1+ H (Negative) Urine Urobilinogen 1.0 (<2.0) mg/dL Add Ur Microanalysis Reviewed Leukocyte Esterase Rfl Negative (Negative) MARIA LUZ/UL Urine RBC 0-2 (0-2) /hpf Urine WBC 0-5 (0-3) /hpf Ur Squamous Epith Cells None seen (Few) /hpf Urine Bacteria None seen /hpf Urine Casts 11-20 Salicylates < 1.0 L (2-20) mg/dL Urine Opiates Screen Negative (Negative) Urine Methadone Screen Negative (Negative) Acetaminophen < 10 L (10-30) ug/mL Ur Barbiturates Screen Negative (Negative) Ur Phencyclidine Scrn Negative (Negative) Ur Amphetamine Screen Negative (Negative) U Benzodiazepines Scrn Negative (Negative) Urine Cocaine Screen Negative (Negative) U Cannabinoids Screen Positive A (Negative) Ethyl Alcohol < 10 (<10) mg/dL Influenza A (RT-PCR) Negative (Negative) Influenza B (RT-PCR) Negative (Negative) RSV (RT-PCR) Negative (Negative) SARS-CoV-2 RNA (RT-PCR) Negative (Negative) <Shivani Nieves PA-C - Last Filed: 12/29/24 02:04> Lab Results 12/28/24 12/28/24 12/29/24 Range/Units 17:54 18:59 00:45 WBC 7.8 (4.5-10.0) K/mm3 RBC 5.15 (4.6-6.20) M/mm3 Hgb 15.7 (14.0-18.0) g/dL Hct 46.9 (42.0-52.0) % MCV 91.1 (80-100) fl MCH 30.5 (26-34) pg MCHC 33.5 (32-36) g/dl RDW 12.3 (11.5-14.5) % Plt Count 202 (150-375) k/mm3 MPV 9.9 (7.4-10.4) fl Immature Gran % (Auto) 0.4 (0-0.5) % Neut % (Auto) 64.4 (45.5-73.1) % Lymph % (Auto) 22.6 (18.3-44.2) % [place] % (Auto) 11.5 H (2.6-8.5) % Eos % (Auto) 0.8 (0-4.4) % Baso % (Auto) 0.3 (0.2-1.2) % Lymph # (Auto) 1.75 (0.9-3.2) K/mm3 [place] # (Auto) 0.9 H (0.1-0.6) K/mm3 Eos # (Auto) 0.1 (0-0.3) K/mm3 Baso # (Auto) 0.0 (0.0-0.1) K/mm3 Abs Immat Gran (auto) 0.03 (0.00-0.031) K/mm3 Absolute Neuts (auto) 5.0 (1.3-6.7) K/mm3 Absolute Nucleated RBC 0.000 (0.0-0.012) K/mm3 Nucleated RBC % 0.0 (0.0-0.2) % Sodium 143 (137-145) mmol/L Potassium 3.8 (3.4-5.0) mmol/L Chloride 104 (98-107) mmol/L Carbon Dioxide 25 (22-30) mmol/L Anion Gap 14 H (4-12) mmol/L BUN 9 (9-20) mg/dL Creatinine 0.95 (0.7-1.3) mg/dL Estim Creat Clear Calc 108 ml/min Estimated GFR > 60 (59 - ) Glucose 112 H (65-110) mg/dL Calcium 10.1 (8.4-10.2) mg/dL Total Bilirubin 1.8 H (0.2-1.3) mg/dL AST 29 (17-59) U/L ALT 17 (6-50) U/L Alkaline Phosphatase 64 (38-126) U/L Total Protein 9.2 H (6.3-8.2) g/dL Albumin 5.3 H (3.5-5.1) g/dL TSH 2.040 (0.465-4.680) uIU/mL Urine Color Dark yellow (Yellow) Urine Appearance Clear (Clear) Urine pH 6.0 (5.0-9.0) Ur Specific [place] 1.042 H (1.001-1.035) Urine Protein 1+ H (Negative) mg/dL Urine Glucose (UA) Negative (Negative) mg/dL Urine Ketones 1+ H (Negative) mg/dL Ur Blood (Man) Negative (Negative) Urine Nitrate Negative (Negative) Urine Bilirubin 1+ H (Negative) Urine Urobilinogen 1.0 (<2.0) mg/dL Add Ur Microanalysis Reviewed Leukocyte Esterase Rfl Negative (Negative) MARIA LUZ/UL Urine RBC 0-2 (0-2) /hpf Urine WBC 0-5 (0-3) /hpf Ur Squamous Epith Cells None seen (Few) /hpf Urine Bacteria None seen /hpf Urine Casts 11-20 Salicylates < 1.0 L (2-20) mg/dL Urine Opiates Screen Negative (Negative) Urine Methadone Screen Negative (Negative) Acetaminophen < 10 L (10-30) ug/mL Ur Barbiturates Screen Negative (Negative) Ur Phencyclidine Scrn Negative (Negative) Ur Amphetamine Screen Negative (Negative) U Benzodiazepines Scrn Negative (Negative) Urine Cocaine Screen Negative (Negative) U Cannabinoids Screen Positive A (Negative) Ethyl Alcohol < 10 (<10) mg/dL Influenza A (RT-PCR) Negative (Negative) Influenza B (RT-PCR) Negative (Negative) RSV (RT-PCR) Negative (Negative) SARS-CoV-2 RNA (RT-PCR) Negative (Negative) <Lance Mcdonnell MD - Last Filed: 12/28/24 19:16> Lab Results 12/28/24 12/28/24 12/29/24 Range/Units 17:54 18:59 00:45 WBC 7.8 (4.5-10.0) K/mm3 RBC 5.15 (4.6-6.20) M/mm3 Hgb 15.7 (14.0-18.0) g/dL Hct 46.9 (42.0-52.0) % MCV 91.1 (80-100) fl MCH 30.5 (26-34) pg MCHC 33.5 (32-36) g/dl RDW 12.3 (11.5-14.5) % Plt Count 202 (150-375) k/mm3 MPV 9.9 (7.4-10.4) fl Immature Gran % (Auto) 0.4 (0-0.5) % Neut % (Auto) 64.4 (45.5-73.1) % Lymph % (Auto) 22.6 (18.3-44.2) % [place] % (Auto) 11.5 H (2.6-8.5) % Eos % (Auto) 0.8 (0-4.4) % Baso % (Auto) 0.3 (0.2-1.2) % Lymph # (Auto) 1.75 (0.9-3.2) K/mm3 [place] # (Auto) 0.9 H (0.1-0.6) K/mm3 Eos # (Auto) 0.1 (0-0.3) K/mm3 Baso # (Auto) 0.0 (0.0-0.1) K/mm3 Abs Immat Gran (auto) 0.03 (0.00-0.031) K/mm3 Absolute Neuts (auto) 5.0 (1.3-6.7) K/mm3 Absolute Nucleated RBC 0.000 (0.0-0.012) K/mm3 Nucleated RBC % 0.0 (0.0-0.2) % Sodium 143 (137-145) mmol/L Potassium 3.8 (3.4-5.0) mmol/L Chloride 104 (98-107) mmol/L Carbon Dioxide 25 (22-30) mmol/L Anion Gap 14 H (4-12) mmol/L BUN 9 (9-20) mg/dL Creatinine 0.95 (0.7-1.3) mg/dL Estim Creat Clear Calc 108 ml/min Estimated GFR > 60 (59 - ) Glucose 112 H (65-110) mg/dL Calcium 10.1 (8.4-10.2) mg/dL Total Bilirubin 1.8 H (0.2-1.3) mg/dL AST 29 (17-59) U/L ALT 17 (6-50) U/L Alkaline Phosphatase 64 (38-126) U/L Total Protein 9.2 H (6.3-8.2) g/dL Albumin 5.3 H (3.5-5.1) g/dL TSH 2.040 (0.465-4.680) uIU/mL Urine Color Dark yellow (Yellow) Urine Appearance Clear (Clear) Urine pH 6.0 (5.0-9.0) Ur Specific [place] 1.042 H (1.001-1.035) Urine Protein 1+ H (Negative) mg/dL Urine Glucose (UA) Negative (Negative) mg/dL Urine Ketones 1+ H (Negative) mg/dL Ur Blood (Man) Negative (Negative) Urine Nitrate Negative (Negative) Urine Bilirubin 1+ H (Negative) Urine Urobilinogen 1.0 (<2.0) mg/dL Add Ur Microanalysis Reviewed Leukocyte Esterase Rfl Negative (Negative) MARIA LUZ/UL Urine RBC 0-2 (0-2) /hpf Urine WBC 0-5 (0-3) /hpf Ur Squamous Epith Cells None seen (Few) /hpf Urine Bacteria None seen /hpf Urine Casts 11-20 Salicylates < 1.0 L (2-20) mg/dL Urine Opiates Screen Negative (Negative) Urine Methadone Screen Negative (Negative) Acetaminophen < 10 L (10-30) ug/mL Ur Barbiturates Screen Negative (Negative) Ur Phencyclidine Scrn Negative (Negative) Ur Amphetamine Screen Negative (Negative) U Benzodiazepines Scrn Negative (Negative) Urine Cocaine Screen Negative (Negative) U Cannabinoids Screen Positive A (Negative) Ethyl Alcohol < 10 (<10) mg/dL Influenza A (RT-PCR) Negative (Negative) Influenza B (RT-PCR) Negative (Negative) RSV (RT-PCR) Negative (Negative) SARS-CoV-2 RNA (RT-PCR) Negative (Negative) <Ivan Perkins MD - Last Filed: 12/29/24 06:54> Lab Results 12/28/24 12/28/24 12/29/24 Range/Units 17:54 18:59 00:45 WBC 7.8 (4.5-10.0) K/mm3 RBC 5.15 (4.6-6.20) M/mm3 Hgb 15.7 (14.0-18.0) g/dL Hct 46.9 (42.0-52.0) % MCV 91.1 (80-100) fl MCH 30.5 (26-34) pg MCHC 33.5 (32-36) g/dl RDW 12.3 (11.5-14.5) % Plt Count 202 (150-375) k/mm3 MPV 9.9 (7.4-10.4) fl Immature Gran % (Auto) 0.4 (0-0.5) % Neut % (Auto) 64.4 (45.5-73.1) % Lymph % (Auto) 22.6 (18.3-44.2) % [place] % (Auto) 11.5 H (2.6-8.5) % Eos % (Auto) 0.8 (0-4.4) % Baso % (Auto) 0.3 (0.2-1.2) % Lymph # (Auto) 1.75 (0.9-3.2) K/mm3 [place] # (Auto) 0.9 H (0.1-0.6) K/mm3 Eos # (Auto) 0.1 (0-0.3) K/mm3 Baso # (Auto) 0.0 (0.0-0.1) K/mm3 Abs Immat Gran (auto) 0.03 (0.00-0.031) K/mm3 Absolute Neuts (auto) 5.0 (1.3-6.7) K/mm3 Absolute Nucleated RBC 0.000 (0.0-0.012) K/mm3 Nucleated RBC % 0.0 (0.0-0.2) % Sodium 143 (137-145) mmol/L Potassium 3.8 (3.4-5.0) mmol/L Chloride 104 (98-107) mmol/L Carbon Dioxide 25 (22-30) mmol/L Anion Gap 14 H (4-12) mmol/L BUN 9 (9-20) mg/dL Creatinine 0.95 (0.7-1.3) mg/dL Estim Creat Clear Calc 108 ml/min Estimated GFR > 60 (59 - ) Glucose 112 H (65-110) mg/dL Calcium 10.1 (8.4-10.2) mg/dL Total Bilirubin 1.8 H (0.2-1.3) mg/dL AST 29 (17-59) U/L ALT 17 (6-50) U/L Alkaline Phosphatase 64 (38-126) U/L Total Protein 9.2 H (6.3-8.2) g/dL Albumin 5.3 H (3.5-5.1) g/dL TSH 2.040 (0.465-4.680) uIU/mL Urine Color Dark yellow (Yellow) Urine Appearance Clear (Clear) Urine pH 6.0 (5.0-9.0) Ur Specific [place] 1.042 H (1.001-1.035) Urine Protein 1+ H (Negative) mg/dL Urine Glucose (UA) Negative (Negative) mg/dL Urine Ketones 1+ H (Negative) mg/dL Ur Blood (Man) Negative (Negative) Urine Nitrate Negative (Negative) Urine Bilirubin 1+ H (Negative) Urine Urobilinogen 1.0 (<2.0) mg/dL Add Ur Microanalysis Reviewed Leukocyte Esterase Rfl Negative (Negative) MARIA LUZ/UL Urine RBC 0-2 (0-2) /hpf Urine WBC 0-5 (0-3) /hpf Ur Squamous Epith Cells None seen (Few) /hpf Urine Bacteria None seen /hpf Urine Casts 11-20 Salicylates < 1.0 L (2-20) mg/dL Urine Opiates Screen Negative (Negative) Urine Methadone Screen Negative (Negative) Acetaminophen < 10 L (10-30) ug/mL Ur Barbiturates Screen Negative (Negative) Ur Phencyclidine Scrn Negative (Negative) Ur Amphetamine Screen Negative (Negative) U Benzodiazepines Scrn Negative (Negative) Urine Cocaine Screen Negative (Negative) U Cannabinoids Screen Positive A (Negative) Ethyl Alcohol < 10 (<10) mg/dL Influenza A (RT-PCR) Negative (Negative) Influenza B (RT-PCR) Negative (Negative) RSV (RT-PCR) Negative (Negative) SARS-CoV-2 RNA (RT-PCR) Negative (Negative) <Flo Wills MD - Last Filed: 12/29/24 12:02> Critical Care Time Critical Care Time Critical Care Time: Yes <Ivan Perkins MD - Last Filed: 12/29/24 06:54> Total Critical Care Time: 35 <Ivan Perkins MD - Last Filed: 12/29/24 06:54> Restraint Face to Face Eval ED Reason for Restraint Aggressive/Violent <MELANIE Morrow Last Filed: 12/29/24 02:04> Evaluation Findings Date Seen by EDP: 12/28/24 <MELANIE Morrow Last Filed: 12/29/24 02:04> Time Seen by EDP: 18:00 <MELANIE Morrow Last Filed: 12/29/24 02:04> Pt's immediate situation:: patient agitated, combative, resistant to verbal deescalation, attempting to leave Rm 15 and resisting security trying to deescalate and keep patient in room. danger to himself and ED staff/security. IM haldol/ativan ordered. <Shivani Nieves PA-C - Last Filed: 12/29/24 02:04> Pt's reaction to intervention:: patient continues to be voilent, aggressive, agitated, difficult to redirect given ketamine 50mg IM at 1833, administered by Dr. Mcdonnell patient moved to RM 14 continues to pose threat to himself and ED staff/security placed in 4 point restraints shortly after ketamine reeval within 30 min -patient stable in restraints, resting, intermittently sleeping. 12/28 2244- patient able to have physical restraints removed. Resting comfortably. <MELANIE Morrow Last Filed: 12/29/24 02:04> Pt's med/behavioral condition:: agitated, combative, aggressive, hx bipolar disorder <MELANIE Morrow Last Filed: 12/29/24 02:04> Restraint or Seclusion Need Need to continue or terminate:: 12/28 2244- patient able to have physical restraints removed. Resting comfortably. <MELANIE Morrow Last Filed: 12/29/24 02:04> Discharge Plan Discharge Clinical Impression: Agitation, Acute psychosis Bipolar disorder Qualifiers: Active/Remission status: currently active Current bipolar episode type: d epressed Current episode severity: severe Psychotic features: without psychotic features Qualified Code(s): F31.4 - Bipolar disorder, current episode depressed, severe, without psychotic features <MELANIE Morrow Last Filed: 12/29/24 02:04> Patient Disposition: Psychiatric Hosp <MELANIE Morrow Last Filed: 12/29/24 02:04> Condition: Serious <MELANIE Morrow Last Filed: 12/29/24 02:04> Additional Instructions: Transferred to [facility] <MELANIE Morrow Last Filed: 12/29/24 02:04> Patient Language: Portuguese <MELANIE Morrow Last Filed: 12/29/24 02:04> Prescriptions: No Action aripiprazole 15 mg tablet PO epinephrine 0.3 mg/0.3 mL auto-injector IM fluticasone propion-salmeterol 100-50 mcg/dose blister with device inhalation montelukast 10 mg tablet PO albuterol sulfate 90 mcg/actuation HFA aerosol inhaler inhalation Zyrtec 10 mg capsule 10 mg PO DAILY PRN Fish Oil 100-160-1,000 mg capsule PO <Shivani Nieves PA-C - Last Filed: 12/29/24 02:04> Follow-up/Referrals: Sonia Lea MD [Primary Care Provider] - <Shivani Nieves PA-C - Last Filed: 12/29/24 02:04>
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
[2024-12-28 18:02] LABS: Hematocrit 46.9 % (42.0-52.0); Hemoglobin 15.7 g/dL (14.0-18.0); Immature Granulocyte Percent A 0.4 % (0-0.5); Lymphocytes Absolute Auto 1.75 K/mm3 (0.9-3.2); Mean Corpuscular HGB Conc 33.5 g/dl (32-36); Mean Corpuscular Hemoglobin 30.5 pg (26-34); Mean Corpuscular Volume 91.1 fl (80-100); Nucleated Red Blood Cells Absolute Auto 0.000 K/mm3 (0.0-0.012); Nucleated Red Blood Cells Perc 0.0 % (0.0-0.2); Platelet Count Result 202 k/mm3 (150-375); Red Blood Count 5.15 M/mm3 (4.6-6.20); White Blood Count 7.8 K/mm3 (4.5-10.0)
[2024-12-28] MEDS: LORazepam INJ (*CRX) 2 MG/ML VIAL IM (18:05)
[2024-12-28] MEDS: HALOPERIDOL LACTATE 5 MG/ML VIAL IM (18:05)
[2024-12-28 18:14] LABS: Acetaminophen < 10 ug/mL (10-30); Alanine Aminotransferase 17 U/L (6-50); Albumin Level 5.3 g/dL (3.5-5.1); Alkaline Phosphatase 64 U/L (38-126); Anion Gap 14 mmol/L (4-12); Aspartate Amino Transferase 29 U/L (17-59); Bilirubin,Total 1.8 mg/dL (0.2-1.3); Blood Urea Nitrogen 9 mg/dL (9-20); Calcium 10.1 mg/dL (8.4-10.2); Carbon Dioxide 25 mmol/L (22-30); Chloride 104 mmol/L (98-107); Estimated CRCL calculation 108 ml/min; Estimated Glomerular Filt Rate > 60; Glucose 112 mg/dL (65-110); Potassium 3.8 mmol/L (3.4-5.0); Salicylate < 1.0 mg/dL (2-20); Sodium 143 mmol/L (137-145); Total Protein 9.2 g/dL (6.3-8.2)
--- OUTSIDE RECORDS SUMMARY | 2024-12-28 18:20 | XMS_ITS | Clinical Summary ---
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 WORKER Gender Identity Not on file Sexual Orientation Not on file Obstetrics History Last Filed Vital Signs Vital Sign Reading Time Taken Comments Blood Pressure 148/74 06/04/2024 2:16 PM CARDROOM WORKER Pulse 90 06/04/2024 2:16 PM CARDROOM WORKER Temperature 37.1 C (98.7 F) 06/04/2024 2:16 PM CARDROOM WORKER Respiratory Rate 18 06/04/2024 2:16 PM CARDROOM WORKER Oxygen Saturation 98% 06/04/2024 2:16 PM CARDROOM WORKER Inhaled Oxygen Concentration - - Weight 81.6 kg (180 lb) 06/04/2024 2:16 PM CARDROOM WORKER Height 175.3 cm (5' 9) 06/04/2024 2:16 PM CARDROOM WORKER Body Mass Index 26.58 06/04/2024 2:16 PM CARDROOM WORKER Plan of Treatment Health Maintenance Due [...] 02/22/2024, , 09/18/2020, Additional history exists Insurance Only [employer] [place] Care Teams Bottom Finisher Relationship Specialty Start Date End Date Rosette Stewart MD [address] [place] [address] PCP - General 07/23/16 Oliva Roberts NP [address] [place] [address] Nurse Practitioner Pediatrics 04/05/23
--- OUTSIDE RECORDS SUMMARY | 2024-12-28 18:20 | XMS_ITS | Clinical Summary ---
Author Organization [facility] Address [address] [place] [address] Care Team Providers Care Organic Chemist Name Role Phone Rosette Stewart MD Primary Care Provider [phone] Source Comments [facility],non-owned Affiliates and Associated Physician Practices is amultiple site organization consisting of ambulatory clinics and hospital sitesin [place], [place], [place] and [place]. This disclosure is being madepursuant to the Care Everywhere program and may not contain all information available regarding this patient. Last updated 18.[facility] Allergies Active Allergy Reactions Criticality Noted Date [...] on file Legal Sex Male 5:42 AM CRISIS INTERVENTION SPECIALIST Gender Identity Not on file Sexual Orientation Not on file Last Filed Vital Signs Vital Sign Reading Time Taken Comments Blood Pressure 92/58 03/27/2012 3:42 PM CRISIS INTERVENTION SPECIALIST Pulse 90 09/07/2010 3:58 PM CDT Temperature - - Respiratory Rate 20 09/07/2010 3:58 PM CDT Oxygen Saturation - - Inhaled Oxygen Concentration - - Weight 37.2 kg (82 lb) 03/27/2012 3:42 PM CRISIS INTERVENTION SPECIALIST Height 142.4 cm (4' 8.06) 03/27/2012 3:42 PM CS T Body Mass Index 18.34 03/27/2012 3:42 PM CRISIS INTERVENTION SPECIALIST Plan of Treatment Health Maintenance Due Date [...] to [place] [id number] [facility] [place] [address] [facility]ARE [facility] Care Teams Organic Chemist Relationship Specialty Start Date End Date Rosette Stewart MD [address] [place] [address] PCP - General Pediatrics 03/26/12
--- OUTSIDE RECORDS SUMMARY | 2024-12-28 18:20 | XMS_ITS | Continuity of Care Document ---
Author Organization [facility] Address [address] [place] [address] Phone Care Team Providers Care Court Clerk Name Role Phone Lottie Rubi MD Unavailable [...] Encounter [facility], [address] [place] [address], [address] [place] [address], tel:[phone] [facility] No Information 2 Greyson Lottie. [address] [place] [address], [id number] , . tel: [phone] [facility], [address] [place] [address], [id number], tel:[phone] [facility] No Information 2 Greyson Lottie. [address] [place] [address], [address], [id number] , [place]. tel: [phone] [facility], [address] [place] [address], [id number], tel:[phone] [facility] No Information 2 Greyson Lottie. [address] [place] [address], [address], [id number] , . tel: [phone] [facility], [address] [place] [address], [id number], [place] tel:[phone] [facility] No Information 1 Greyson Tafoya. [address] [place] [address], [address], [place], [place], [id number] , [place]. tel:[phone] PREVENTIVE COUNSELING, INDIV [facility], [address] [place] [address], [id number], [place] tel:[phone] [facility] allergies and asthma (chief complaint) AsthmaOther adverse food reaction, subsequent encounterAllergy to peanuts 1 Greyson Tafoya. [address] [place] [address], [address], [place], [place], [id number] , [place]. tel:[phone] Referring Provider: Rosette Morgan [facility] [facility] [address], [place], [address]. tel:[phone] [facility], [address] [place] [address], [id number], [place] tel:[phone] [facility] No Information 1 Agustin David. [address] [place] [address], [address], [place], [place], [id number] , [place]. tel:[phone] PREVENTIVE COUNSELING, INDIV [facility], [address] [place] [address], [id number], [place] tel:[phone] [facility] Allergies, Asthma & Food Allergy (chief complaint) Other adverse food reaction, subsequent encounterOther allergic rhinitisAllergy to peanutsAllergy to nut other than peanut September- 0 Greyson Tafoya. [address] [place] [address], [address], [place], [place], [id number] , [place]. tel:[phone] Referring Provider: Lottie Rubi, [address] [place] [address] [address], [place], [address] . tel:[phone] Est (Level 4) OFFICE/OUTPA TIENT VISIT [facility], [address] [place] [address], [id number], tel:[phone] [facility] allergies and asthma (chief complaint) AsthmaEczemaOther adverse food reaction, subsequent encounterAllergy to peanutsAllergy to nut other than peanut 9 Greyson Tafoya. [address] [place] [address], [address], [place], [place], [id number] , . tel:[phone] Referring Provider: Rosette Morgan, [address] [facility] [address], [place], [address]. tel:[phone] Est (Level 4) OFFICE/OUTPA TIENT VISIT [facility], [address] [place] [address], [address] [place] [address], tel:[phone] [facility] allergies and asthma (chief complaint) AsthmaOther allergic rhinitisAtopic dermatitis Greyson Tafoya. [address] [place] [address], [place] [address], [place], [place], [id number] , . [phone] Referring Provider: Lottie Rubi, [address] [place] [address] [address] [facility], [place], [place], [address] [place] [address] . tel:[phone] [facility], [address] [place] [address], [address] [place] [address], tel:[phone] [facility] No Information 9 Greyson Tafoya. [address] [place] [address], [place] [address], [place], [place], [id number] , . [phone] Referring Provider: Lottie Rubi, [address] [place] [address] [address] [facility], [place], [place], [address] [place] [address] . tel:[phone] Est (Level 4) OFFICE/OUTPA TIENT VISIT [facility], [address] [place] [address], [id number], tel:[phone] [facility] Asthma (chief complaint) AsthmaOther allergic rhinitisOther adverse food reaction, subsequent encounterAllergy to peanutsAllergy to nut other than peanutAtopic dermatitis 9 Greyson Tafoya. [address] [place] [address], Suite [facility], [place], [address] [place] [address] , . tel:[phone] Referring Provider: Lottie Rubi, [address] [place] [address] [address] [facility], [place], [address] [place] [address] . tel:[phone] Est (Level 3) OFFICE/OUTPA TIENT VISIT [facility], [address] [place] [address], [address] [place] [address], tel:[phone] [facility] asthma (chief complaint) AsthmaEczema Greyson Tafoya. [address] [place] [address], [place] [address], [place], [address] [place] [address] , . tel:[phone] Referring Provider: Lottie Rubi, [address] [place] [address] [address] [facility], [place], [address] [place] [address] . tel:[phone] PREVENTIVE COUNSELING, INDIV [facility], [address] [place] [address], [address] [place] [address], tel:[phone] [facility] allergy symptoms (chief complaint) EczemaAsthmaOther allergic rhinitisAllergy to peanutsAllergy to nut other than peanutOther adverse food reaction, initial encounter 7 Greyson Tafoya. [address] [place] [address], [place] [address], [place], [address] [place] [address] , . tel:[phone] Referring Provider: Paul Winter4 [facility] [address], [place], [address]. tel:[phone] Family History Family Member Type Diagnosis Age [...] Profile With Total IgE, Respiratory Area 8 ([id number]), Ordered on: Ordered Future Order: Lab Order Allergen Profile, Nut, IgE With Component Reflexes* ([id number]), Ordered on: Ordered History Of Present Illness [...] Food Allergy This visit takes place over teleSTYLIGHT video platform ([employer]) with the patient in their home.LV: 04/10/2021Today [...] No interval accidental ingestions. He has seen [facility] Dermatology in the past but not recently. [...] using any topical steroids. He has seen [facility] Dermatology in the past. He continues to [...] swimming. He has an appt scheduled with [facility] Pediatric Dermatology but step-dad does not know [...] other areas.4. Soaps- Dove bar soap, Cetaphil Store Clerk Cashier (or generic), Vanicream bar soap5. Bleach- 2 [...]
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
[2024-12-28 18:46] LABS: Thyroid Stimulating Hormone 2.040 uIU/mL (0.465-4.680)
[2024-12-28 19:39] LABS: Influenza A QL RT-PCR Negative (Negative); Influenza B QL RT-PCR Negative (Negative); RSV RNA, RT-PCR Negative (Negative); SARS-CoV-2 RNA PCR Negative (Negative)
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
--- NOTE | 2024-12-28 23:54 | PC.NURSE ---
Per pt mother pt is very attention seeking, theatrical. Pt currently living with his grandmother as she is able to baby him and give him unlimited attention. Dolly [phone]
[2024-12-29] VITALS (11 sets, daily range): BP systolic 128–150; BP diastolic 80–89; PULSE 86–140; RESP 13–24; TEMP 36.6–37; O2SAT 100
[2024-12-29 01:17] LABS: Add Urine Microscopic? YES; Appearance Urine Clear (Clear); Glucose Urine UA Negative (Negative); Leukocyte Esterase Ur Negative LEU/UL (Negative); Need Manual Microscopic Reviewed; Nitrate Urine Negative (Negative); Specific Grav Ur 1.042 (1.001-1.035)
[2024-12-29 01:58] LABS: Cannabinoid Screen Urine Positive (Negative)
--- NOTE | 2024-12-29 02:20 | PC.NURSE ---
Pt does not meet BABAR Criteria as he has private insurance.
--- NOTE | 2024-12-29 02:22 | PC.NURSE ---
crisis notified of tequila denial. they will send someone out angelina.
[2024-12-29] MEDS: QUEtiapine FUMARATE 12.5 MG TABLET PO (04:56)
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
--- NOTE | 2024-12-29 07:04 | PC.NURSE ---
breakfast tray ordered. monday special cage free eggs scrambled hot tea with sugar
--- NOTE | 2024-12-29 07:30 | PC.NURSE ---
0730 in room eating breakfast.
[2024-12-29] MEDS: LORazepam INJ (*CRX) 2 MG/ML VIAL IM (07:45)
--- NOTE | 2024-12-29 08:01 | PC.NURSE ---
in room with pt and he request something for anxiety to help him. ERP notified and lorazepam 2mg IM to right glute given.
--- NOTE | 2024-12-29 08:24 | PC.NURSE ---
Addendum entered by Kim Gallegos RN 12/29/24 08:27: this note is from 729 Original Note: pt ate breakfast and pacing in room asked if he wanted something for anxiety and sleep and he said yes, ERP notified.
--- NOTE | 2024-12-29 08:25 | PC.NURSE ---
currently in hallway taking with mom on phone
--- NOTE | 2024-12-29 10:01 | PC.NURSE ---
continued to appear anxious, pacing in room looking at EMS doors that lead outside. ERP notified of increased anxiety and agitation and new med ordered and given. Still pacing in room at this time
[2024-12-29] MEDS: diphenhydrAMINE HCl CAP 25 MG CAPSULE 50 MG PO (10:30)
[2024-12-29] MEDS: HALOPERIDOL LACTATE 5 MG/ML VIAL IM (10:30)
--- NOTE | 2024-12-29 10:52 | PC.NURSE ---
[facility] declined due to his high acuity
== END 2024-12-29 12:45 ==
PROVIDERS: Physician Assistant; Emergency Provider Emergency Medicine; PCP Family Medicine
DX: F31.4 Bipolar disorder, current episode depressed, severe, without psychotic features (principal); F23 Brief psychotic disorder; R45.1 Restlessness and agitation; Z11.52 Encounter for screening for COVID-19; Z79.899 Other long term (current) drug therapy
CPT/HCPCS: 36415; 80053; 80143; 80179; 80307; 81001; 82077; 84443; 85025; 87637; 96372; 99285; A9270; J1630; J2060